=== PATIENT | female | born 1960 | race Caucasian/White ===

== ENCOUNTER 2016-10-06 23:06 | Inpatient (IN) | payer MEDICARE, MEDICAID ==
[2016-10-07] VITALS (21 sets, daily range): BP systolic 86–168; BP diastolic 54–107; PULSE 63–79; RESP 12–28; TEMP 98.7–101; O2SAT 97–100
[2016-10-07] MEDS ORDERED: PROPOFOL 1000 MG/100 ML INJ 100 ML ONE (00:38)
--- NOTE | 2016-10-07 01:25 | HHI.HP ---
[facility] Service Critical Care Medicine Primary Care Physician Kevin Ulloa M.D. Admission Diagnosis Diagnosis: (1) COPD (chronic obstructive pulmonary disease) Diagnosis: Secondary (2) Acute respiratory failure Diagnosis: Secondary (3) Tobacco abuse Diagnosis: Secondary (4) Chronic pain Diagnosis: Secondary (5) Hypothyroid Diagnosis: Secondary (6) Esophageal foreign body Diagnosis: Principal (7) Accidental esophageal perforation during procedure Diagnosis: Principal (8) Esophagitis Diagnosis: Secondary (9) Depression Diagnosis: Secondary (10) GERD (gastroesophageal reflux disease) Diagnosis: Secondary (11) Hyperlipidemia Diagnosis: Secondary (12) HTN (hypertension) Diagnosis: Secondary Travel History International Travel<30 Days: No Contact w/Intl Traveler <30 Da: No Traveled to Known Affected Are: No History of Present Illness 86-year-old female with past history of COPD, GERD, hypertension, hyperlipidemia, hypothyroidism, chronic pain with pain pump L flank transferred from [facility] due to concern for esophageal perforation. Patient originally presented to [facility] emergency Department on at around 8 PM complaining of difficulty swallowing after she had eaten some steak around [address] Nazario with gastroenterology took her to GI lab for endoscopy where she was noted to have significant esophagitis. There was a large foreign body with steak in the esophagus. He made multiple passes with net and tripod and was able to remove 6-7 large pieces of steak but states there was still a large amount of residual foreign body when procedure concluded after unintentional esophageal perforation distal third of esophagus. Dr. Nazario discussed with Dr. Hernandez with [facility] surgery who agreed to see patient in consultation with front end architect admission. Patient is awake alert, anxious on the ventilator upon arrival with propofol at 80 g per KG per minute. Normotensive. Review of Systems ROS Limitations: Clinical Condition, Intubated Past Family Social History Allergies: Coded Allergies: No Known Allergies (Unverified , 10/07/16) Past Medical History Chronic pain Hypothyroidism COPD Hypertension Hyperlipidemia GERD Depression Past Surgical History Bilateral tubal ligation Correction of deviated septum History of tubal Pilonidal cyst Cervical fusion Breast lumpectomy Laminectomy Reported Medications Unable to obtain from patient due to clinical condition. Medication reconciliation from transferring hospital indicates: Albuterol 2 puffs inhaled every 6 hours when necessary wheezing Norvasc 5 mg by mouth daily Percocet 7.5/325 one tab by mouth twice a day as needed Amitriptyline 75 mg by mouth daily at bedtime Atorvastatin 40 mg by mouth daily at bedtime Fentanyl patch 25 every 72 hours [place]-codon 10 mg when necessary pain Levothyroxin 175 g by mouth daily Multivitamin 1 tab by mouth daily Prednisone 40 mg by mouth daily Family History Unable to obtain from patient due to clinical condition Social History Unable to obtain from patient due to clinical condition Prior records indicate one pack of cigarettes daily. Physical Exam Vital Signs Vital Signs Date Time Temp Pulse Resp B/P Pulse Ox O2 Delivery O2 Flow Rate FiO2 10/07/16 00:30 63 Physical Exam GENERAL: Well-nourished, well-developed female who is orotracheally intubated, anxious appearing. SKIN: Warm and dry. HEAD: Atraumatic. Normocephalic. EYES: Pupils equal and round, 2 mm reactive. No scleral icterus. No injection or drainage. ENT: No nasal bleeding or discharge. Mucous membranes pink and moist. NECK: Trachea midline. No JVD. CARDIOVASCULAR: Regular rate and rhythm. No murmurs rubs or gallops. RESPIRATORY: No accessory muscle use. Clear to auscultation. Breath sounds equal bilaterally. No subcutaneous emphysema GASTROINTESTINAL: Abdomen soft, non-tender, nondistended. Bowel sounds present. Pain pump palpable left flank. MUSCULOSKELETAL: Extremities without clubbing, cyanosis, or edema. NEUROLOGICAL: Awake and alert, nodding to questions while on ventilator.. No obvious cranial nerve deficits. Motor grossly within normal limits., Moving all extremities spontaneously and to command. Assessment and Plan Problem List: (1) COPD (chronic obstructive pulmonary disease) ICD Code: J44.9 Status: Chronic (2) Acute respiratory failure ICD Code: J96.00 Status: Acute (3) Tobacco abuse ICD Code: Z72.0 Status: Chronic (4) Chronic pain ICD Code: G89.29 Status: Chronic (5) Hypothyroid ICD Code: E03.9 Status: Chronic (6) Esophageal foreign body ICD Code: T18.108A Status: Acute (7) Accidental esophageal perforation during procedure ICD Code: K91.72 Status: Acute (8) Esophagitis ICD Code: K20.9 Status: Chronic (9) Depression ICD Code: F32.9 Status: Chronic (10) GERD (gastroesophageal reflux disease) ICD Code: K21.9 Status: Chronic (11) Hyperlipidemia ICD Code: E78.5 Status: Chronic (12) HTN (hypertension) ICD Code: I10 Status: Chronic Assessment and Plan NEURO: Chronic pain Pain pump in place Depression Propofol for sedation. Fentanyl drip sedation Target RASS -2 Hold amitriptyline 75 mg by mouth daily. RESP: Acute respiratory failure COPD Tobacco abuse ACV tidal volume 450/rate 16/P5/FiO2 35%. Chest x-raysatisfactory endotracheal tube position, bibasilar opacities, no subcutaneous edema. DuoNeb every 6 hours. Albuterol every 2 hours as needed. Appears patient was on prednisone 40 mg daily as outpatient. CV: Hypertension Hyperlipidemia Hold home Norvasc 5 mg by mouth daily. Hold atorvastatin 40 mg by mouth daily at bedtime GI: GERD Esophagitis Esophageal foreign body, meat impaction Concern for esophageal perforation, distal 1/3 of esophagus Endoscopy performed at [facility]. Dr. Nazario states unable to fully remove foreign body despite multiple attempts and concern that there was an unintentional perforation of the esophagus. Transferred to [facility] for CV surgery evaluation. Dr. Mayte Hernandez to see. May need gastroenterology consult as well but will confer with Dr. Cameron. Obtain CT chest noncontrast . FEN/RENAL: Schneider in place. Monitor intake and output. Monitor electrolytes and replace as indicated ID: Concern for esophageal perforation. Empiric therapy with Zosyn 3.375 g IV every 8 hours; Diflucan 400 mg IV daily ( history of chronic PPI/steroid use). Blood cultures were obtained HEME: Obtain CBC ENDO: Hypothyroidism Home Synthroid dose is 175 g daily. Check TSH and initiate IV synthroid. PROPH: SCDs for DVT prophylaxis. Protonix 40 mg IV daily for stress ulcer prophylaxis and history of GERD. ACCESS: Peripheral IV providing adequate access at this time. Updated Dr. Mayte Hernandez. Critical care time 50 minutes exclusive of separately billable procedures. Problem Qualifiers (1) Esophageal foreign body: Qualified Code: T18.108D - Esophageal foreign body, subsequent encounter Diandra Gastelum MD October 07, 2016 01:25
[2016-10-07] MEDS ORDERED: MIDAZOLAM HCL 5 MG/ML VIAL (1 ML) ONE (01:37)
[2016-10-07] MEDS: SODIUM CHLOR 0.9% 1000 ML INJ 1,000 ML IV SCH ×4 (01:37→22:01)
[2016-10-07] MEDS ORDERED: MISCELLANEOUS NURSING INFORMATION XX SCH (01:45)
[2016-10-07] MEDS ORDERED: CHLORHEXIDINE GLUCONATE 2 % 1 PACK (2 CLOTHS) TOP PRN (01:45)
[2016-10-07] MEDS ORDERED: ONDANSETRON HCL 4 MG/2 ML VIAL IV PRN (01:45)
[2016-10-07] MEDS ORDERED: SODIUM CHLORIDE 0.9% FLUSH 10 ML FLUSH PRN (01:45)
[2016-10-07] MEDS ORDERED: RESP: ALBUTEROL 2.5 MG/3 ML NEB (PRN) INH (01:45)
[2016-10-07] MEDS ORDERED: BISACODYL 10 MG SUPP RECTAL PRN (01:45)
[2016-10-07] MEDS: fentaNYL DRIP 250 ML IV SCH ×3 (01:51→18:20)
--- NOTE | 2016-10-07 02:11 | RADRPT ---
EXAM DATE/TIME: 10/07/2016 01:41 [facility] COMPARISON: No previous studies available for comparison. INDICATIONS : Respiratory failure. MEDICAL HISTORY : None. SURGICAL HISTORY : None. ENCOUNTER: Subsequent ACUITY: 2 days PAIN SCORE: Non-responsive. LOCATION: Bilateral chest FINDINGS: Endotracheal tube is present with tip 4 cm above the debi. There is slight basilar parenchymal opac ity bilaterally. No evidence of effusion. Accounting for rotation, the cardiac contours are grossly s atisfactory. CONCLUSION: Mild basilar parenchymal opacities Sabas Enciso MD on October 07, 2016 at 2:09 Board Certified Radiologist. This report was verified electronically.
[2016-10-07] MEDS: FLUCONAZOLE 400 MG PREMIX BAG 200 ML IV SCH (02:24)
[2016-10-07] MEDS: PROPOFOL 1000 MG/100 ML INJ 100 ML IV SCH ×6 (02:33→22:03)
[2016-10-07 03:06] LABS: BLOOD GAS BASE EXCESS 0.8 mmol/L (-2-2); BLOOD GAS CARBOXYHEMOGLOBIN 1.8 % (0-4); BLOOD GAS HCO3 24 mmol/L (22-26); BLOOD GAS METHEMOGLOBIN 0.9 % (0-2); BLOOD GAS O2 HGB SATURATION 96 % (90-100); BLOOD GAS OXYGEN CONTENT 16.1 Vol % (12.0-20.0); BLOOD GAS PCO2 32 mmHg (38-42); BLOOD GAS PO2 110 mmHg (61-120); BLOOD GAS TOTAL HGB 11.8 G/DL (12.0-16.0); TEMP CORR TO 98.6
[2016-10-07 03:07] LABS: CRITICAL VALUE NO; DRAW SITE RT RADIAL; FIO2 40 %; NUMBER OF ARTERIAL PUNCTURES 1; OXYGEN DEVICE VENTILATOR; STAT NO; ULNAR PULSE PRESENT; VENT SETTINGS A/C16/450/+5PEEP
--- NOTE | 2016-10-07 03:27 | RADRPT ---
EXAM DATE/TIME: 10/07/2016 03:08 [facility] COMPARISON: No previous studies available for comparison. INDICATIONS : Status post EGD; possible esophageal perforation. RADIATION DOSE: 5.14 CTDIvol (mGy) MEDICAL HISTORY : None SURGICAL HISTORY : foreign body lodged in esophagus - retrieval ENCOUNTER: [facility] ACUITY: 1 day PAIN SCALE: Non-responsive LOCATION: chest TECHNIQUE: Volumetric scanning of the chest was performed. Using automated exposure control and adjustment of t he mA and/or kV according to patient size, radiation dose was kept as low as reasonably achievable to obtain optimal diagnostic quality images. FINDINGS: LUNGS: There is perihilar infiltrates, right worse than left and basilar consolidative changes bilaterally. PLEURAE: Minimal bilateral effusion. MEDIASTINUM: There is a mixed density prominence in the distal esophagus which may be retained impacted food bolus . There is air external to the esophagus in the lower mediastinum and significant extraluminal gas pr esent at the GE junction and in the visualized upper abdomen at multiple sites. AXILLAE: Within normal limits. No lymphadenopathy. MUSCULOSKELETAL: Within normal limits for patient age. MISCELLANEOUS: Pneumoperitoneum in the visualized upper abdomen is incompletely seen CONCLUSION: Significant extraluminal gas in the lower mediastinum and visualized upper abdomen. Perihilar and bibasilar parenchymal infiltrates. Sabas Enciso MD on October 07, 2016 at 3:21 Board Certified Radiologist. This report was verified electronically.
[2016-10-07] MEDS: RESP: ALBUTEROL 2.5 MG/IPRATROPIUM 0.5 MG NEB (SCH) INH ×4 (03:49→19:36)
[2016-10-07] MEDS: CHLORHEXIDINE GLUCONATE 2 % 1 PACK (2 CLOTHS) TOP SCH (04:00)
[2016-10-07] MEDS: PIPERACIL-TAZO 3.375 GM PREMIX 50 ML IV SCH ×3 (04:00→18:20)
[2016-10-07] MEDS ORDERED: MIDAZOLAM HCL 5 MG/ML VIAL (1 ML) IV SCH (04:15)
[2016-10-07] MEDS: MIDAZOLAM HCL 2 MG/2 ML VIAL IV PRN ×2 (05:16→08:55)
[2016-10-07] MEDS: CHLORHEXIDINE 0.12% (ORAL KIT) 15 ML CUP MT SCH ×2 (08:00→20:00)
[2016-10-07] MEDS: PANTOPRAZOLE SODIUM 40 MG VIAL IV SCH (08:50)
[2016-10-07] MEDS: SODIUM CHLORIDE 0.9% FLUSH 10 ML FLUSH SCH ×2 (08:55→22:01)
--- NOTE | 2016-10-07 11:18 | PD.CONS ---
History of Present Illness Service CT Surgery Consult Requested By Dr. Gastelum Reason for Consult Iatrogenic esophageal injury s/p upper endoscopy for meat impaction Primary Care Physician Kevin Ulloa M.D. Diagnoses: (1) Esophageal foreign body (2) Accidental esophageal perforation during procedure (3) Esophagitis History of Present Illness 56 y/o female transferred from [facility] emergently due to suspected esophageal injury during an endoscopy procedure. The patient presented to the ED there with c/o dysphagia after ingesting steak. She denies any h/o esophageal disease, dysphagia, or odynophagia. She does have significant h/o reflux/heartburn and tobacco abuse. Dr. Nazario at [facility] requested transfer when he was concerned about esophageal injury in their operating room. Review of Systems ROS Limitations: Clinical Condition, Intubated Patient is intubated/sedated Past Family Social History Allergies: Coded Allergies: No Known Allergies (Unverified , 10/07/16) Past Medical History Past Medical History Chronic pain Hypothyroidism COPD Hypertension Hyperlipidemia GERD Depression Past Surgical History Bilateral tubal ligation Correction of deviated septum History of tubal Pilonidal cyst Cervical fusion Breast lumpectomy Laminectomy Reported Medications Unable to obtain from patient due to clinical condition. Medication reconciliation from transferring hospital indicates: Albuterol 2 puffs inhaled every 6 hours when necessary wheezing Norvasc 5 mg by mouth daily Percocet 7.5/325 one tab by mouth twice a day as needed Amitriptyline 75 mg by mouth daily at bedtime Atorvastatin 40 mg by mouth daily at bedtime Fentanyl patch 25 every 72 hours [place]-codon 10 mg when necessary pain Levothyroxin 175 g by mouth daily Multivitamin 1 tab by mouth daily Prednisone 40 mg by mouth daily Family History Unable to obtain from patient due to clinical condition Social History Unable to obtain from patient due to clinical condition Prior records indicate one pack of cigarettes daily. Current Medications Medications (Trade) Dose Ordered Sig/Magi Route Start Time Stop Time Status Last Admin (NS 1000 ml Inj) 1,000 ml @ 125 mls/hr Q8H IV 10/07/16 01:37 10/07/16 08:55 (NS Flush) 2 ml UNSCH PRN .XX 10/07/16 01:45 (NS Flush) 2 ml BID .XX 10/07/16 09:00 10/07/16 08:55 (Protonix Inj) 40 mg DAILY IV 10/07/16 09:00 10/07/16 08:50 (Versed Inj) 2 mg Q15M PRN IV 10/07/16 01:45 10/07/16 08:55 (Zofran Inj) 4 mg Q6H PRN IV 10/07/16 01:45 Miscellaneous Information 1 Q361D XX 10/07/16 01:45 (Chlorhexidine 2% Cloth) 3 pack Taper DAILY@04 TOP 10/07/16 04:00 10/03/17 03:59 10/07/16 04:00 (Chlorhexidine 2% Cloth) 3 pack UNSCH PRN TOP 10/07/16 01:45 Bisacodyl 10 mg 10 mg DAILY PRN RECTAL 10/07/16 01:45 Propofol 100 ml @ 0 mls/hr TITRATE IV 10/07/16 01:45 10/07/16 08:50 Fentanyl Citrate 250 ml @ 0 mls/hr TITRATE IV 10/07/16 01:45 10/07/16 08:50 Piperacillin Sod/ Tazobactam Sod 50 ml @ 100 mls/hr Q8H IV 10/07/16 02:00 10/07/16 04:00 (Diflucan 400 Mg Premix Bag) 200 ml @ 100 mls/hr Q24H IV 10/07/16 02:00 10/07/16 02:24 (Peridex 0.12% Liq) 15 ml BID@08,20 MT 10/07/16 08:00 10/07/16 08:00 Physical Exam Vital Signs Vital Signs Date Time Temp Pulse Resp B/P Pulse Ox O2 Delivery O2 Flow Rate FiO2 10/07/16 08:06 99 40 10/07/16 07:00 100 Mechanical Ventilator 40 10/07/16 06:00 71 10/07/16 04:00 72 10/07/16 04:00 100.3 77 14 168/107 99 10/07/16 04:00 100.3 73 12 153/100 98 10/07/16 03:54 100 40 10/07/16 03:00 98 40 10/07/16 03:00 100 100 10/07/16 02:00 72 10/07/16 01:24 99 40 10/07/16 00:30 63 10/07/16 00:30 50 Physical Exam GENERAL: This is a well-nourished, well-developed patient, intubated and appearing older than her stated age. SKIN: No rashes, ecchymoses or lesions. Cool and dry. HEAD: Atraumatic. Normocephalic. No temporal or scalp tenderness. EYES: Pupils equal round and reactive. Extraocular motions intact. No scleral icterus. No injection or drainage. ENT: Nose without bleeding, purulent drainage or septal hematoma. Throat without erythema, tonsillar hypertrophy or exudate. Uvula midline. Airway patent. NECK: Trachea midline. No JVD or lymphadenopathy. Supple, nontender, no meningeal signs. CARDIOVASCULAR: Regular rate and rhythm without murmurs, gallops, or rubs. RESPIRATORY: Clear to auscultation. Breath sounds equal bilaterally. No wheezes , rales, or rhonchi. GASTROINTESTINAL: Abdomen soft, mildly distended, tympanitic with mild tenderness. +BS MUSCULOSKELETAL: Extremities without clubbing, cyanosis, or edema. No joint tenderness, effusion, or edema noted. No calf tenderness. Negative Homans sign bilaterally. NEUROLOGICAL: Awake and alert. Cranial nerves II through XII intact. Motor and sensory grossly within normal limits. Five out of 5 muscle strength in all muscle groups. Normal speech. Laboratory Laboratory Tests Test 10/07/16 10/07/16 00:45 02:52 Nasal Screen MRSA (PCR) MRSA NOT DETECTED Blood Gas Puncture Site RT RADIAL Blood Gas Patient Temperature 98.6 Blood Gas HCO3 24 Blood Gas Base Excess 0.8 Blood Gas Oxygen Saturation 96 Arterial Blood pH 7.49 Arterial Blood Partial 32 Pressure CO2 Arterial Blood Partial 110 Pressure O2 Arterial Blood Oxygen Content 16.1 Arterial Blood 1.8 Carboxyhemoglobin Arterial Blood Methemoglobin 0.9 Blood Gas Hemoglobin 11.8 Oxygen Delivery Device VENTILATOR Blood Gas Ventilator Setting A/C16/450/+5PEEP Blood Gas Inspired Oxygen 40 Date/Time Procedure Status Source Growth 10/07/16 02:10 Aerobic Blood Culture Received Blood Peripheral Pending 10/07/16 02:10 Anaerobic Blood Culture Received Blood Peripheral Pending Imaging Last Impressions Chest X-Ray 10/07/16 0000 Signed Impressions: Service Date/Time: Friday, October 07, 2016 01:41 - CONCLUSION: Mild basilar parenchymal opacities Sabas Enciso MD Chest CT 10/07/16 0000 Signed Impressions: Service Date/Time: Friday, October 07, 2016 03:08 - CONCLUSION: Significant extraluminal gas in the lower mediastinum and visualized upper abdomen. Perihilar and bibasilar parenchymal infiltrates. Sabas Enciso MD Course Patient is intubated and hemodynamically stable. Assessment and Plan Problem List: (1) Esophageal foreign body Status: Acute (2) Accidental esophageal perforation during procedure Status: Acute (3) GERD (gastroesophageal reflux disease) Status: Chronic Plan: Recommend proton pump inhibitors. (4) Esophagitis Status: Chronic Assessment and Plan 56 y/o female with complicated esophageal injury and meat impaction. I reviewed her chest CT and she does not appear to have a true free perforation into the chest or abdomen. She most likely has a mucosal injury from the procedure and some retained meat bolus. The gas in the soft tissues is often seen with insufflation used during EGD, however, perforation and soiling cannot be excluded at this time. She does not appear septic or toxic at this time and is being treated with broad-spectrum antibiotics and fluconazole. Plan: Recommend serial CBC and frequent checks for signs of sepsis. Continue antibiotics/fluconazole Consult GI medicine Consider thin barium swallow or via NG tube in the proximal esophagus to better examine the area for perforation Consider General Surgery consult as the area of concern appears to be more abdominal than thoracic. Will follow. Problem Qualifiers (1) Esophageal foreign body: Qualified Code: T18.108D - Esophageal foreign body, subsequent encounter Phuong Hernandez MD October 07, 2016 11:18
[2016-10-07] MEDS ORDERED: LORazepam 2 MG/ML VIAL IV PUSH PRN (11:30)
--- NOTE | 2016-10-07 11:43 | PD.PROCEDR ---
Procedure Note Procedure DX: Esophageal Perforation OP: Insertion Left Subclavian Central Venous Line ([id number]) Procedure: Left chest prepped and draped. Left subclavian vein cannulated and wire easily advanced. Catheter passed over wire to 18 cm. Lumens aspirated and flushed. Dressing applied. CXR ordered, will review. Neo Currie MD October 07, 2016 11:43
[2016-10-07 13:21] LABS: AUTOMATED NEUTROPHIL # 9.7 TH/MM3 (1.8-7.7); BASOPHIL % 0.3 % (0.0-2.0); HEMATOCRIT 32.8 % (35.0-46.0); LYMPH % 4.7 % (9.0-44.0); LYMPHOCYTE # 0.5 TH/MM3 (1.0-4.8); MEAN CELL VOLUME 89.5 FL (80.0-100.0); MEAN CORPUSCULAR HEMOGLOBIN 30.5 PG (27.0-34.0); MONO % 3.9 % (0.0-8.0); NEUT % 91.1 % (16.0-70.0); PLATELET COUNT 256 TH/MM3 (150-450); RED BLOOD COUNT 3.66 MIL/MM3 (4.00-5.30); RED CELL DISTRIBUTION WIDTH 19.4 % (11.6-17.2); WHITE BLOOD COUNT 10.6 TH/MM3 (4.0-11.0)
[2016-10-07 13:22] LABS: HEMO FLAGS AUTO DIFF
--- NOTE | 2016-10-07 13:32 | RADRPT ---
EXAM DATE/TIME: 10/07/2016 12:22 [facility] COMPARISON: CT THORAX W/O CONTRAST, October 07, 2016, 3:08. CHEST SINGLE AP, October 07, 2016, 1:41. INDICATIONS : Central line placement. MEDICAL HISTORY : None. SURGICAL HISTORY : None. ENCOUNTER: Subsequent ACUITY: 1 day PAIN SCORE: Non-responsive. LOCATION: chest FINDINGS: Portable AP view of the chest demonstrates cardiac silhouette at the upper limits for normal. Left vernon bclavian central line has been placed with the distal tip in the SVC. No pneumothorax is visualized. ETT remains present. Lungs are underinflated and there are bibasilar opacities. Breast implants are p resent. CONCLUSION: 1. Left subclavian central line distal tip is in the SVC. No pneumothorax is visualized. 2. Underinflation with persistent bibasilar air space opacity. Sabas Yip MD on October 07, 2016 at 13:29 Board Certified Radiologist. This report was verified electronically.
[2016-10-07 13:34] LABS: BICARBONATE 27.3 MEQ/L (21.0-32.0); POTASSIUM 3.5 MEQ/L (3.5-5.1)
[2016-10-07 13:51] LABS: BANDS 21 % (0-6); NEUTROPHIL # MANUAL DIFF 9.8 TH/MM3 (1.8-7.7); POLYS (SEG NEUTROPHILS) 71 % (16-70); WBC DIFF SAMPLE 100
[2016-10-07 13:52] LABS: PLATELET ESTIMATE SMEAR NORMAL (NORMAL); PLATELET MORPHOLOGY NORMAL (NORMAL); SCAN/DIFF FINAL DIFF MANUAL
--- NOTE | 2016-10-07 16:56 | MB ---
cc: KRANTHI LOPEZ M.D. DATE OF CONSULTATION: 10/07/2016. REASON FOR CONSULTATION: Questionable esophageal perforation. CONSULTING PHYSICIAN: Dr. Currie. HISTORY OF PRESENT ILLNESS: This is a 56-year-old female who was at [facility] and underwent an EGD for esophageal obstruction with steak. This EGD was done by Dr. Nazario. Apparently he was concerned about a possible perforation during manipulation; I do not have the formal dictation. At any rate, she was transferred over early this morning and the cardiothoracic surgeon evaluated her. She had a CT of her chest which shows some air bubbles around the esophagus and distal esophagus. She was kept on the ventilator after her EGD. Dr. Hernandez felt that she since she was stable and they were watching her, Dr. Currie saw her this morning and wanted general surgery input for evaluation as well. PAST MEDICAL HISTORY: Her history is obtained from the medical record as she is under sedation on the ventilator. I am able to review some paperwork from other hospital, she mostly has nursing notes. On review of Dr. Gastelum notes, she had apparently has: 1. Chronic pain. 2. Hypothyroidism. 3. Depression. 4. COPD. 5. Impaction of a steak in her distal esophagus. Dr. Nazario had a conversation with Dr. Hernandez, the cardiovascular surgeon, early this morning apparently. MEDICATIONS: Reviewed. PHYSICAL EXAMINATION:: GENERAL: On physical exam, she is on the ventilator sedated. She has numerous earrings in her head, eyebrows, umbilicus. NECK: The neck is supple. She has an endotracheal tube in. CHEST: Fairly clear. ABDOMEN: Slightly obese, soft without rigidity. EXTREMITIES: She is sedated, so was not moving her extremities. GENITOURINARY: She has a Schneider catheter which is draining urine. In other reports, apparently she was awake and alert. Reviewing the CT scan, it appears that she has a food bolus in the distal one-third of the esophagus just behind the tip of the heart. On reviewing Dr. Nazario's handwritten note, it looks like he pulled out part of the impaction, but not all of it. LABORATORY DATA: She has a white count of 11, hemoglobin 11 and hematocrit 32. Chemistries all pending. ASSESSMENT: 56-year-old female status post EGD with partial removal of a steak impaction at an outside institution left on the ventilator for possible esophageal perforation. PLAN: At this time, I would continue antibiotics. I talked to Dr. Currie about placing a nasal esophageal tube just to keep the esophagus decompressed. This may just be a microperforation. I think at this time if any surgical intervention is needed the best approach by the cardiothoracic surgeon where this microperforation or perforation may have resulted in the chest, the chest needs to be drained if that is the case as well. I will be on standby if needed; however, I do not think my surgical privileges at the hospital allow me to perform thoracotomy at this time. MD OLIMPIA Carcamo/TIA /1:37 PM /4:46 PM TORO
--- NOTE | 2016-10-07 17:15 | PD.CONS ---
HPI History of Present Illness This is a 56 year old [lady. who was sent from [facility] after having an EGD/ foreign body removal for a piece of steak and it was thought that there might be esophageal perforation after the procedure. She presented to the ER yesterday evening with dysphagia after eating steak and had EGD with Dr Nazario, esophagitis noted. He was not able to removed all of the foreign body. She is intubated on a vent, history obtained from RN, EMR. CT 10-07-16 --> mixed density prominence in diatal esophagus which may be retained impacted food bolus , air external to esophagus in lower mediastinum and significant extraluminal gas present at GE junction and visualized upper abd at multiple sites. ( Linda Garrison) PFSH Past Medical History per EMR chronic pain hypothyroid HTN hyperlipidemia GERD depression Past Surgical History per EMR bilat tubal ligation repair dev septum cervical fusion br lumpectomy lami (Linda Garrison) Coded Allergies: No Known Allergies (Unverified , 10/07/16) Family History unable to obtain Social History per EMR 1 ppd (Linda Garrison) Review of Systems ROS unable to obtain (Linda Garrison) GI Exam Vitals I&O Vital Signs Date Time Temp Pulse Resp B/P Pulse Ox O2 Delivery O2 Flow Rate FiO2 10/07/16 15:14 97 40 10/07/16 15:00 79 10/07/16 14:00 71 10/07/16 12:00 50 10/07/16 12:00 98.9 74 12 116/68 100 10/07/16 12:00 74 10/07/16 11:42 98 40 10/07/16 10:00 70 10/07/16 08:06 99 40 10/07/16 08:00 98.7 77 12 131/91 100 10/07/16 08:00 50 10/07/16 08:00 75 10/07/16 07:00 100 Mechanical Ventilator 40 10/07/16 07:00 75 10/07/16 06:00 71 10/07/16 04:00 72 10/07/16 04:00 100.3 77 14 168/107 99 10/07/16 04:00 100.3 73 12 153/100 98 10/07/16 03:54 100 40 10/07/16 03:00 98 40 10/07/16 03:00 100 100 10/07/16 02:00 72 10/07/16 01:24 99 40 10/07/16 00:30 63 10/07/16 00:30 50 I/O 10/06/16 10/06/16 10/06/16 10/07/16 10/07/16 10/07/16 07:00 15:00 23:00 07:00 15:00 23:00 Intake Total 586 ml 1242 ml Output Total 1750 ml 750 ml Balance -1164 ml 492 ml Intake IV Total 586 ml 1242 ml Output Urine Total 1750 ml 750 ml # Bowel Movements 0 Imaging Last Impressions Chest X-Ray 10/07/16 0000 Signed Impressions: Service Date/Time: Friday, October 07, 2016 12:22 - CONCLUSION: 1. Left subclavian central line distal tip is in the SVC. No pneumothorax is visualized. 2. Underinflation with persistent bibasilar air space opacity. Sabas Yip MD Chest CT 10/07/16 0000 Signed Impressions: Service Date/Time: Friday, October 07, 2016 03:08 - CONCLUSION: Significant extraluminal gas in the lower mediastinum and visualized upper abdomen. Perihilar and bibasilar parenchymal infiltrates. Sabas Enciso MD Laboratory Test 10/07/16 10/07/16 10/07/16 10/07/16 00:45 02:52 13:01 13:07 Nasal Screen MRSA (PCR) MRSA NOT DETECTED Blood Gas Puncture Site RT RADIAL Blood Gas Patient Temperature 98.6 Blood Gas HCO3 24 mmol/L Blood Gas Base Excess 0.8 mmol/L Blood Gas Oxygen Saturation 96 % Arterial Blood pH 7.49 Arterial Blood Partial 32 mmHg Pressure CO2 Arterial Blood Partial 110 mmHg Pressure O2 Arterial Blood Oxygen Content 16.1 Vol % Arterial Blood 1.8 % Carboxyhemoglobin Arterial Blood Methemoglobin 0.9 % Blood Gas Hemoglobin 11.8 G/DL Oxygen Delivery Device VENTILATOR Blood Gas Ventilator Setting A/C16/450/+5PEEP Blood Gas Inspired Oxygen 40 % Sodium Level 141 MEQ/L Potassium Level 3.5 MEQ/L Chloride Level 104 MEQ/L Carbon Dioxide Level 27.3 MEQ/L Anion Gap 10 MEQ/L Blood Urea Nitrogen 8 MG/DL Creatinine 0.72 MG/DL Estimat Glomerular Filtration 84 ML/MIN Rate Random Glucose 87 MG/DL Calcium Level 7.6 MG/DL Thyroid Stimulating Hormone 13.600 uIU/ML 3rd Gen White Blood Count 10.6 TH/MM3 Red Blood Count 3.66 MIL/MM3 Hemoglobin 11.2 GM/DL Hematocrit 32.8 % Mean Corpuscular Volume 89.5 FL Mean Corpuscular Hemoglobin 30.5 PG Mean Corpuscular Hemoglobin 34.0 % Concent Red Cell Distribution Width 19.4 % Platelet Count 256 TH/MM3 Mean Platelet Volume 7.4 FL Neutrophils (%) (Auto) 91.1 % Lymphocytes (%) (Auto) 4.7 % Monocytes (%) (Auto) 3.9 % Eosinophils (%) (Auto) 0.0 % Basophils (%) (Auto) 0.3 % Neutrophils # (Auto) 9.7 TH/MM3 Lymphocytes # (Auto) 0.5 TH/MM3 Monocytes # (Auto) 0.4 TH/MM3 Eosinophils # (Auto) 0.0 TH/MM3 Basophils # (Auto) 0.0 TH/MM3 CBC Comment AUTO DIFF Differential Total Cells 100 Counted Neutrophils % (Manual) 71 % Band Neutrophils % 21 % Lymphocytes % 4 % Monocytes % 4 % Neutrophils # (Manual) 9.8 TH/MM3 Differential Comment FINAL DIFF MANUAL Platelet Estimate NORMAL Platelet Morphology Comment NORMAL Date/Time Procedure Status Source Growth 10/07/16 13:41 Gram Stain Received Sputum Endotracheal Pending 10/07/16 13:41 Sputum Culture Received Sputum Endotracheal Pending 10/07/16 02:10 Aerobic Blood Culture Received Blood Peripheral Pending 10/07/16 02:10 Anaerobic Blood Culture Received Blood Peripheral Pending Physical Examination HEENT: intubated, normocephalic; atraumatic; no jaundice. CHEST: CTA CARDIAC: RRR ABDOMEN: Soft, obese, no hepatosplenomegaly; bowel sounds are present in all four quadrants. EXTREMITIES: No clubbing, cyanosis, or edema. SKIN: Normal; no rash; no jaundice. ADJUNCT PROFESSOR OF VOICE: sedated on vent. (Linda Garrison) Assessment and Plan Plan ASSESSMENT - poss esophageal perforation - pt sent from [facility] after EGD for foreign body removal and suspected esophageal perforation. Pt intubated. CT 10-07-16 --> mixed density prominence in distal esophagus which may be retained impacted food bolus, air external to esophagus in lower mediastinum and significant extraluminal gas present at GE junction and visualized upper abd at multiple sites. - poss foreign body esophagus - per EMR not all of steak removed from pts esophagus. PLAN - supportive care - further evaluation after extubation and gastrografin study This pt seen by myself and Dr Granados and this note is written on his behalf ( Linda Garrison) Physician Comments Seen and examined, plan as above. Will follow up with you. (Neelima Granados MD) Linda Garrison October 07, 2016 17:14 Neelima Granados MD October 07, 2016 23:19
[2016-10-08] VITALS (15 sets, daily range): BP systolic 92–110; BP diastolic 53–63; PULSE 63–88; RESP 12–28; TEMP 98.1–101; O2SAT 94–100
[2016-10-08] MEDS: FLUCONAZOLE 400 MG PREMIX BAG 200 ML IV SCH (01:15)
[2016-10-08] MEDS: PIPERACIL-TAZO 3.375 GM PREMIX 50 ML IV SCH ×3 (01:16→18:27)
[2016-10-08] MEDS: fentaNYL DRIP 250 ML IV SCH ×3 (01:16→23:14)
[2016-10-08] MEDS: PROPOFOL 1000 MG/100 ML INJ 100 ML IV SCH ×7 (01:17→23:38)
[2016-10-08] MEDS: RESP: ALBUTEROL 2.5 MG/IPRATROPIUM 0.5 MG NEB (SCH) INH ×4 (03:19→21:45)
[2016-10-08] MEDS: CHLORHEXIDINE GLUCONATE 2 % 1 PACK (2 CLOTHS) TOP SCH (04:00)
--- NOTE | 2016-10-08 05:14 | RADRPT ---
EXAM DATE/TIME: 10/08/2016 04:29 [facility] COMPARISON: CHEST SINGLE AP, October 07, 2016, 12:22. INDICATIONS : Short of breath. MEDICAL HISTORY : None. SURGICAL HISTORY : None. ENCOUNTER: Subsequent ACUITY: 2 days PAIN SCORE: 0/10 LOCATION: Bilateral chest FINDINGS: Endotracheal tube and left subclavian central line are stable in position. Slight basilar parenchymal opacities persist. Accounting for rotation, cardiac contours are grossly stable.CONCLUSION: Stab le chest appearance Sabas Enciso MD on October 08, 2016 at 5:11 Board Certified Radiologist. This report was verified electronically.
[2016-10-08 05:54] LABS: BASOPHIL % 0.3 % (0.0-2.0); EOSINOPHIL % 0.4 % (0.0-4.0); HEMATOCRIT 28.8 % (35.0-46.0); HEMO FLAGS DIFF FINAL; LYMPH % 6.9 % (9.0-44.0); LYMPHOCYTE # 0.6 TH/MM3 (1.0-4.8); MEAN CELL VOLUME 90.3 FL (80.0-100.0); MEAN CORPUSCULAR HEMOGLOBIN 30.4 PG (27.0-34.0); MEAN CORPUSCULAR HGB CONC 33.7 % (32.0-36.0); MONO % 2.8 % (0.0-8.0); NEUT % 89.6 % (16.0-70.0); PLATELET COUNT 215 TH/MM3 (150-450); RED BLOOD COUNT 3.19 MIL/MM3 (4.00-5.30); WHITE BLOOD COUNT 8.9 TH/MM3 (4.0-11.0)
[2016-10-08 06:07] LABS: BICARBONATE 28.3 MEQ/L (21.0-32.0); POTASSIUM 3.3 MEQ/L (3.5-5.1); THYROXINE (T4) 5.2 MCG/DL (4.8-13.9)
[2016-10-08 06:19] LABS: CALCIUM-PROTEIN CORRECTED 7.9 MG/DL (8.5-10.1)
--- NOTE | 2016-10-08 07:40 | HHI.CCPN ---
Subjective Remarks/Hospital Course 86-year-old female with past history of COPD, GERD, hypertension, hyperlipidemia, hypothyroidism, chronic pain with pain pump L flank transferred from [facility] due to concern for esophageal perforation. Patient originally presented to [facility] emergency Department on at around 8 PM complaining of difficulty swallowing after she had eaten some steak around [address] Nazario with gastroenterology took her to GI lab for endoscopy where she was noted to have significant esophagitis. There was a large foreign body with steak in the esophagus. He made multiple passes with net and tripod and was able to remove 6-7 large pieces of steak but states there was still a large amount of residual foreign body when procedure concluded after unintentional esophageal perforation distal third of esophagus. Dr. Nazario discussed with Dr. Hernandez with [facility] who agreed to see patient in consultation with diving board assembler admission. Patient is awake alert, anxious on the ventilator upon arrival with propofol at 80 g per KG per minute. Normotensive. 10/08: Appreciate input from consultants. We are presently dealing with full blown ETOH withdrawal as well. Objective Vital Signs Date Time Temp Pulse Resp B/P Pulse Ox O2 Delivery O2 Flow Rate FiO2 10/08/16 06:00 71 10/08/16 04:00 40 10/08/16 04:00 98.9 20 110/53 97 10/07/16 20:00 Mechanical Ventilator Intake and Output 10/07/16 10/07/16 10/08/16 08:00 16:00 00:00 Intake Total 586 ml 1242 ml 1514 ml Output Total 1750 ml 750 ml 450 ml Balance -1164 ml 492 ml 1064 ml Result Diagram: 10/08/16 0512 10/08/16 0512 Objective Remarks GENERAL: female, anxious appearing. SKIN: Warm and dry. HEAD: Atraumatic. Normocephalic. EYES: Pupils equal and round, 3 mm reactive. No scleral icterus. ENT: No nasal bleeding or discharge. NECK: Trachea midline. CARDIOVASCULAR: Regular rate and rhythm. No murmurs rubs or gallops. RESPIRATORY: No accessory muscle use. Clear to auscultation. Breath sounds equal bilaterally. No subcutaneous emphysema GASTROINTESTINAL: Abdomen soft, non-tender, nondistended. Bowel sounds present. Pain pump palpable left flank. MUSCULOSKELETAL: Extremities without clubbing, cyanosis, or edema. Well perfused. NEUROLOGICAL: Awake and alert, nodding to questions while on ventilator.. No obvious cranial nerve deficits. Motor grossly within normal limits., Moving all extremities spontaneously and to command. A/P Problem List: (1) COPD (chronic obstructive pulmonary disease) ICD Code: J44.9 Status: Chronic (2) Acute respiratory failure ICD Code: J96.00 Status: Acute (3) Tobacco abuse ICD Code: Z72.0 Status: Chronic (4) Chronic pain ICD Code: G89.29 Status: Chronic (5) Hypothyroid ICD Code: E03.9 Status: Chronic (6) Esophageal foreign body ICD Code: T18.108A Status: Acute (7) Accidental esophageal perforation during procedure ICD Code: K91.72 Status: Acute (8) Esophagitis ICD Code: K20.9 Status: Chronic (9) Depression ICD Code: F32.9 Status: Chronic (10) GERD (gastroesophageal reflux disease) ICD Code: K21.9 Status: Chronic (11) Hyperlipidemia ICD Code: E78.5 Status: Chronic (12) HTN (hypertension) ICD Code: I10 Status: Chronic Assessment and Plan NEURO: Chronic pain Pain pump in place Depression Propofol for sedation. Fentanyl drip sedation Target RASS -1 - 0 Hold amitriptyline 75 mg by mouth daily. RESP: Acute respiratory failure COPD Tobacco abuse PRVC tidal volume 450/rate 16/P5/FiO2 35%. Chest x-raysatisfactory endotracheal tube position, bibasilar opacities, no subcutaneous edema. DuoNeb every 6 hours. Albuterol every 2 hours as needed. Appears patient was on prednisone 40 mg daily as outpatient. CV: Hypertension Hyperlipidemia Hold home Norvasc 5 mg by mouth daily. Hold atorvastatin 40 mg by mouth daily at bedtime GI: GERD Esophagitis Esophageal foreign body, meat impaction Concern for esophageal perforation, distal 1/3 of esophagus Endoscopy performed at [facility]. Dr. Nazario states unable to fully remove foreign body despite multiple attempts and concern that there was an unintentional perforation of the esophagus. FEN/RENAL: Schneider in place. Monitor intake and output. Monitor electrolytes and replace as indicated ID: Concern for esophageal perforation. Empiric therapy with Zosyn 3.375 g IV every 8 hours; Diflucan 400 mg IV daily ( history of chronic PPI/steroid use). Blood cultures were obtained HEME: Obtain CBC ENDO: Hypothyroidism Home Synthroid dose is 175 g daily. Check TSH and initiate IV synthroid. PROPH: SCDs for DVT prophylaxis. Protonix 40 mg IV daily for stress ulcer prophylaxis and history of GERD. ACCESS: Peripheral IV providing adequate access at this time. Overall impression: No leukocytosis. Effusions persist. Multiple recommendations. She is critically ill with esophageal perforation (albeit likely micro) and ETOH withdrawal complicated the issue. Critical Care 39 mins Problem Qualifiers (1) Esophageal foreign body: Qualified Code: T18.108D - Esophageal foreign body, subsequent encounter Neo Currie MD October 08, 2016 07:40
[2016-10-08] MEDS: CHLORHEXIDINE 0.12% (ORAL KIT) 15 ML CUP MT SCH ×2 (08:00→19:50)
[2016-10-08] MEDS: PANTOPRAZOLE SODIUM 40 MG VIAL IV SCH (08:45)
[2016-10-08] MEDS: SODIUM CHLORIDE 0.9% FLUSH 10 ML FLUSH SCH ×2 (08:46→20:39)
[2016-10-08] MEDS: SODIUM CHLOR 0.9% 1000 ML INJ 1,000 ML IV SCH ×3 (08:46→23:14)
[2016-10-08] MEDS ORDERED: ICU - D/C ICU ELECTROLYTE ORDERS PRN (12:45)
[2016-10-08] MEDS ORDERED: ICU - SODIUM PHOSPHATE 30 MMOL/NS 250 ML IV PRN ×2 (12:45)
[2016-10-08] MEDS ORDERED: ICU - MAGNESIUM SULFATE 2 GM/NS 100 ML IV PRN ×2 (12:45)
[2016-10-08] MEDS ORDERED: ICU - MAGNESIUM OXIDE 400 MG TAB PO PRN (12:45)
[2016-10-08] MEDS ORDERED: ICU - POTASSIUM PHOSPHATE MONOBASIC 500 MG TAB PO PRN (12:45)
[2016-10-08] MEDS ORDERED: ICU - CALL ORDERING PHYSICIAN PRN (12:45)
[2016-10-08] MEDS ORDERED: ICU - MAGNESIUM SULFATE 4 GM/NS 100 ML IV PRN ×2 (12:45)
[2016-10-08] MEDS ORDERED: ICU - POTASSIUM CHLORIDE/AQUEOUS SOLN 20 MEQ/100 ML IVPB IV PRN (12:45)
[2016-10-08] MEDS ORDERED: POTASSIUM CHLORIDE 25 MEQ EFFERVESCENT TAB PO PRN (12:45)
--- NOTE | 2016-10-08 13:07 | RADRPT ---
EXAM DATE/TIME: 10/08/2016 12:23 [facility] COMPARISON: CHEST SINGLE AP, October 08, 2016, 4:29. INDICATIONS : Nasogastric tube placement. MEDICAL HISTORY : None. SURGICAL HISTORY : None. ENCOUNTER: Initial ACUITY: 2 days PAIN SCORE: Non-responsive. LOCATION: chest FINDINGS: There is an NG tube positioned in the upper thorax with the tip just low the level of the bifurcation . There is an endotracheal tube in place which appears to be in good position and unchanged compared to the prior study. There is no evidence of pneumothorax. There is a mild bibasilar infiltrates. CONCLUSION: 1. The NG tube appears to be in the upper to mid thoracic esophagus 2. Otherwise, no significant changes. Jenaro Leblanc MD on October 08, 2016 at 13:04 Board Certified Radiologist. This report was verified electronically.
--- NOTE | 2016-10-08 13:19 | HHI.GIFU ---
Subjective Remarks Same general condition, still intubated. Objective Vitals I&O Vital Signs Date Time Temp Pulse Resp B/P Pulse Ox O2 Delivery O2 Flow Rate FiO2 10/08/16 12:00 40 10/08/16 11:59 94 40 10/08/16 09:20 40 10/08/16 08:51 99 40 10/08/16 08:00 99.3 71 18 95/54 97 10/08/16 08:00 40 10/08/16 07:00 98 Mechanical Ventilator 40 10/08/16 06:00 71 10/08/16 04:00 74 10/08/16 04:00 40 10/08/16 04:00 98.9 74 20 110/53 97 10/08/16 03:19 99 40 10/08/16 02:00 88 10/08/16 00:09 100 40 10/08/16 00:00 40 10/08/16 00:00 101.0 78 28 95/55 98 10/08/16 00:00 78 10/07/16 22:00 74 10/07/16 20:00 78 10/07/16 20:00 98.8 78 18 86/54 98 10/07/16 20:00 40 10/07/16 20:00 94 Mechanical Ventilator 40 10/07/16 19:37 98 40 10/07/16 18:00 74 10/07/16 16:00 98.8 74 19 104/59 98 10/07/16 16:00 74 10/07/16 16:00 40 10/07/16 15:14 97 40 10/07/16 15:00 79 10/07/16 14:00 71 I/O 10/07/16 10/07/16 10/07/16 10/08/16 10/08/16 10/08/16 07:00 15:00 23:00 07:00 15:00 23:00 Intake Total 586 ml 1242 ml 1514 ml 1025 ml Output Total 1750 ml 750 ml 450 ml 600 ml Balance -1164 ml 492 ml 1064 ml 425 ml Intake IV Total 586 ml 1242 ml 1514 ml 1025 ml Output Urine Total 1750 ml 750 ml 450 ml 600 ml # Bowel Movements 0 0 0 Laboratory Laboratory Tests Test 10/08/16 05:12 White Blood Count 8.9 Red Blood Count 3.19 Hemoglobin 9.7 Hematocrit 28.8 Mean Corpuscular Volume 90.3 Mean Corpuscular Hemoglobin 30.4 Mean Corpuscular Hemoglobin 33.7 Concent Red Cell Distribution Width 19.0 Platelet Count 215 Mean Platelet Volume 7.8 Neutrophils (%) (Auto) 89.6 Lymphocytes (%) (Auto) 6.9 Monocytes (%) (Auto) 2.8 Eosinophils (%) (Auto) 0.4 Basophils (%) (Auto) 0.3 Neutrophils # (Auto) 8.0 Lymphocytes # (Auto) 0.6 Monocytes # (Auto) 0.2 Eosinophils # (Auto) 0.0 Basophils # (Auto) 0.0 CBC Comment DIFF FINAL Differential Comment Sodium Level 141 Potassium Level 3.3 Chloride Level 105 Carbon Dioxide Level 28.3 Anion Gap 8 Blood Urea Nitrogen 10 Creatinine 0.80 Estimat Glomerular Filtration 74 Rate Random Glucose 94 Calcium Level 7.2 Protein Corrected Calcium 7.9 Total Protein 5.7 Thyroxine (T4) 5.2 Date/Time Procedure Status Source Growth 10/07/16 13:41 Gram Stain - Final Resulted Sputum Endotracheal 10/07/16 13:41 Sputum Culture - Preliminary Resulted Sputum Endotracheal HEAVY GROWTH NORMAL RESPIRATORY KETURAH... 10/07/16 02:10 Aerobic Blood Culture - Preliminary Resulted Blood Peripheral NO GROWTH IN 1 DAY 10/07/16 02:10 Anaerobic Blood Culture - Preliminary Resulted Gram Positive Cocci Physical Exam HEENT:Intubated, NG tube in place CHEST: Chest is clear to auscultation and percussion. CARDIAC: Regular rate and rhythm with no murmur gallop or rubs. ABDOMEN: Soft, nondistended, nontender; no hepatosplenomegaly; bowel sounds are present in all four quadrants. EXTREMITIES: No clubbing, cyanosis, or edema. Assessment and Plan Plan ASSESSMENT - Esophageal perforation - pt sent from [facility] after EGD for foreign body removal and suspected esophageal perforation. Pt intubated. CT 10-07-16 --> mixed density prominence in distal esophagus which may be retained impacted food bolus, air external to esophagus in lower mediastinum and significant extraluminal gas present at GE junction and visualized upper abd at multiple sites. - Foreign body esophagus - per EMR not all of steak removed from pts esophagus. PLAN - Supportive care - Await gastrografin study - Will follow up with Neelima Juarez MD October 08, 2016 13:19
[2016-10-08] MEDS ORDERED: DIATRIZOATE MEGLUM/DIATRIZOATE SOD 120 ML BTL (for RAD DIAG) OG-TUBE ONE (15:48)
--- NOTE | 2016-10-08 15:56 | RADRPT ---
EXAM DATE/TIME: 10/08/2016 15:28 [facility] COMPARISON: No previous studies available for comparison. INDICATIONS : Distal esophageal obstruction. FLUORO TIME: 1.8 minutes IMAGE COUNT: 10 CONTRAST: 1. Gastrografin (Diatrizoate Meglumine and Diatrizoate Sodium) MEDICAL HISTORY : Hypertension. Chronic obstructive pulmonary disease. Smoker. SURGICAL HISTORY : None. ENCOUNTER: Initial ACUITY: 1 day PAIN SCORE: Non-responsive. LOCATION: Esophagus. FINDINGS: Patient has an NG tube in place positioned in the upper thoracic esophagus. An endotracheal tube is a lso in place. Gastrografin was placed through the NG tube filling the thoracic esophagus. There is a complete obstruction involving the distal esophagus just above the GE junction location. No extravasa tion of contrast is demonstrated. At the end of the procedure, the Gastrografin was drained from the esophagus as much as possible. CONCLUSION: Complete obstruction of the distal esophagus. Jenaro Leblanc MD on October 08, 2016 at 15:53 Board Certified Radiologist. This report was verified electronically.
[2016-10-09] VITALS (17 sets, daily range): BP systolic 100–156; BP diastolic 56–92; PULSE 55–93; RESP 12–22; TEMP 98.1–98.3; O2SAT 94–100
[2016-10-09] MEDS: PIPERACIL-TAZO 3.375 GM PREMIX 50 ML IV SCH ×3 (01:16→16:27)
[2016-10-09] MEDS: FLUCONAZOLE 400 MG PREMIX BAG 200 ML IV SCH (01:16)
[2016-10-09] MEDS: RESP: ALBUTEROL 2.5 MG/IPRATROPIUM 0.5 MG NEB (SCH) INH ×2 (03:56→08:16)
[2016-10-09] MEDS: CHLORHEXIDINE GLUCONATE 2 % 1 PACK (2 CLOTHS) TOP SCH (04:15)
[2016-10-09] MEDS: PROPOFOL 1000 MG/100 ML INJ 100 ML IV SCH ×2 (04:17→08:36)
[2016-10-09 04:39] LABS: AUTOMATED NEUTROPHIL # 5.7 TH/MM3 (1.8-7.7); BASOPHIL % 0.2 % (0.0-2.0); EOSINOPHIL # 0.2 TH/MM3 (0-0.4); EOSINOPHIL % 3.1 % (0.0-4.0); HEMATOCRIT 27.5 % (35.0-46.0); HEMO FLAGS DIFF FINAL; LYMPH % 9.6 % (9.0-44.0); LYMPHOCYTE # 0.6 TH/MM3 (1.0-4.8); MEAN CELL VOLUME 91.6 FL (80.0-100.0); MEAN CORPUSCULAR HEMOGLOBIN 29.3 PG (27.0-34.0); MEAN CORPUSCULAR HGB CONC 31.9 % (32.0-36.0); MONO % 2.9 % (0.0-8.0); NEUT % 84.2 % (16.0-70.0); PLATELET COUNT 182 TH/MM3 (150-450); RED CELL DISTRIBUTION WIDTH 20.1 % (11.6-17.2); WHITE BLOOD COUNT 6.8 TH/MM3 (4.0-11.0)
[2016-10-09 05:36] LABS: BICARBONATE 24.7 MEQ/L (21.0-32.0); CALCIUM-PROTEIN CORRECTED 8.3 MG/DL (8.5-10.1); POTASSIUM 3.4 MEQ/L (3.5-5.1); TOTAL BILIRUBIN ADULT 0.2 MG/DL (0.2-1.0)
[2016-10-09] MEDS: ICU - POTASSIUM CHLORIDE/AQUEOUS SOLN 40 MEQ/100 ML IVPB IV PRN (05:48)
--- NOTE | 2016-10-09 06:05 | HHI.CCPN ---
Subjective Remarks/Hospital Course 86-year-old female with past history of COPD, GERD, hypertension, hyperlipidemia, hypothyroidism, chronic pain with pain pump L flank transferred from [facility] due to concern for esophageal perforation. Patient originally presented to [facility] emergency Department on at around 8 PM complaining of difficulty swallowing after she had eaten some steak around [address] Nazario with gastroenterology took her to GI lab for endoscopy where she was noted to have significant esophagitis. There was a large foreign body with steak in the esophagus. He made multiple passes with net and tripod and was able to remove 6-7 large pieces of steak but states there was still a large amount of residual foreign body when procedure concluded after unintentional esophageal perforation distal third of esophagus. Dr. Nazario discussed with Dr. Hernandez with [facility] who agreed to see patient in consultation with metallurgical engineer admission. Patient is awake alert, anxious on the ventilator upon arrival with propofol at 80 g per KG per minute. Normotensive. 10/08: Appreciate input from consultants. We are presently dealing with full blown ETOH withdrawal as well. 10/09: Complete obstruction distal esophagus. Is this impacted meat or an EG junction malignancy? No leak observed on contrast swallow. Patient remains afebrile and normal white count. I would think next move is EGD. Objective Vital Signs Date Time Temp Pulse Resp B/P Pulse Ox O2 Delivery O2 Flow Rate FiO2 10/09/16 04:00 40 10/09/16 04:00 98.2 55 12 102/56 96 10/08/16 19:00 Mechanical Ventilator 12.00 Intake and Output 10/08/16 10/08/16 10/09/16 08:00 16:00 00:00 Intake Total 1025 ml 1250 ml 1252 ml Output Total 600 ml 1500 ml 1050 ml Balance 425 ml -250 ml 202 ml Result Diagram: 10/09/16 0430 10/09/16 0430 Objective Remarks GENERAL: female, anxious appearing. SKIN: Warm and dry. HEAD: Atraumatic. Normocephalic. EYES: Pupils equal and round, 2 mm reactive. No scleral icterus. ENT: No nasal bleeding or discharge. NECK: Trachea midline. CARDIOVASCULAR: Regular rate and rhythm. No murmurs rubs or gallops. RESPIRATORY: No accessory muscle use. Clear to auscultation. No subcutaneous emphysema GASTROINTESTINAL: Abdomen soft, non-tender, nondistended. Bowel sounds present. Pain pump palpable left flank. MUSCULOSKELETAL: Extremities without clubbing, cyanosis, or edema. Well perfused. NEUROLOGICAL: Awake and alert, nodding to questions while on ventilator.. No obvious cranial nerve deficits. Motor grossly within normal limits., Moving all extremities spontaneously and to command. A/P Problem List: (1) COPD (chronic obstructive pulmonary disease) ICD Code: J44.9 Status: Chronic (2) Acute respiratory failure ICD Code: J96.00 Status: Acute (3) Tobacco abuse ICD Code: Z72.0 Status: Chronic (4) Chronic pain ICD Code: G89.29 Status: Chronic (5) Hypothyroid ICD Code: E03.9 Status: Chronic (6) Esophageal foreign body ICD Code: T18.108A Status: Acute (7) Accidental esophageal perforation during procedure ICD Code: K91.72 Status: Acute (8) Esophagitis ICD Code: K20.9 Status: Chronic (9) Depression ICD Code: F32.9 Status: Chronic (10) GERD (gastroesophageal reflux disease) ICD Code: K21.9 Status: Chronic (11) Hyperlipidemia ICD Code: E78.5 Status: Chronic (12) HTN (hypertension) ICD Code: I10 Status: Chronic Assessment and Plan NEURO: Chronic pain Pain pump in place Depression Propofol for sedation. Fentanyl drip sedation Target RASS -1 - 0 Hold amitriptyline 75 mg by mouth daily. RESP: Acute respiratory failure COPD Tobacco abuse PRVC tidal volume 450/rate 16/P5/FiO2 35%. Chest x-raysatisfactory endotracheal tube position, bibasilar opacities, no subcutaneous edema. DuoNeb every 6 hours. Albuterol every 2 hours as needed. Appears patient was on prednisone 40 mg daily as outpatient - reluctant to continue unless hypotension ensues. We need good mucosal healing. CV: Hypertension Hyperlipidemia Hold home Norvasc 5 mg by mouth daily. Hold atorvastatin 40 mg by mouth daily at bedtime GI: GERD Esophagitis Esophageal foreign body, meat impaction Concern for esophageal perforation, distal 1/3 of esophagus Endoscopy performed at [facility]. Dr. Nazario states unable to fully remove foreign body despite multiple attempts and concern that there was an unintentional perforation of the esophagus. FEN/RENAL: Schneider in place. Monitor intake and output. Monitor electrolytes and replace as indicated ID: Concern for esophageal perforation. Empiric therapy with Zosyn 3.375 g IV every 8 hours; Diflucan 400 mg IV daily ( history of chronic PPI/steroid use). Blood cultures were obtained HEME: Obtain CBC ENDO: Hypothyroidism Home Synthroid dose is 175 g daily. Check TSH and initiate IV synthroid. PROPH: SCDs for DVT prophylaxis. Protonix 40 mg IV daily for stress ulcer prophylaxis and history of GERD. ACCESS: Peripheral IV providing adequate access at this time. Overall impression: No leukocytosis. Pleural effusions remain. Multiple recommendations reviewed. She is critically ill with esophageal perforation ( albeit likely micro) and ETOH withdrawal complicate the issue. Continue abx coverage. Critical Care 35 mins Problem Qualifiers (1) Esophageal foreign body: Qualified Code: T18.108D - Esophageal foreign body, subsequent encounter Neo Currie MD October 09, 2016 06:05
[2016-10-09] MEDS: fentaNYL DRIP 250 ML IV SCH (07:45)
[2016-10-09] MEDS: PANTOPRAZOLE SODIUM 40 MG VIAL IV SCH (09:14)
[2016-10-09] MEDS: SODIUM CHLORIDE 0.9% FLUSH 10 ML FLUSH SCH ×2 (09:14→20:15)
[2016-10-09] MEDS: SODIUM CHLOR 0.9% 1000 ML INJ 1,000 ML IV SCH ×2 (09:18→16:26)
[2016-10-09] MEDS: CHLORHEXIDINE 0.12% (ORAL KIT) 15 ML CUP MT SCH ×2 (09:20→20:00)
--- NOTE | 2016-10-09 13:13 | PD.CAR.PN ---
CVT Progress Note Subjective/Hospital Course: 86-year-old female with past history of COPD, GERD, hypertension, hyperlipidemia, hypothyroidism, chronic pain with pain pump L flank transferred from [facility] due to concern for esophageal perforation. Patient originally presented to [facility] emergency Department on at around 8 PM complaining of difficulty swallowing after she had eaten some steak around [address] Nazario with gastroenterology took her to GI lab for endoscopy where she was noted to have significant esophagitis. There was a large foreign body with steak in the esophagus. He made multiple passes with net and tripod and was able to remove 6-7 large pieces of steak but states there was still a large amount of residual foreign body when procedure concluded after unintentional esophageal perforation distal third of esophagus. Dr. Nazario discussed with Dr. 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 Patient is awake alert, anxious on the ventilator upon arrival with propofol at 80 g per KG per minute. Normotensive. 10/08: Appreciate input from consultants. We are presently dealing with full blown ETOH withdrawal as well. 10/09: pt was also experiencing ETOH withdrawal Barium swallow Complete obstruction distal esophagus. Is this impacted meat or an EG junction malignancy? No leak observed on contrast swallow. recommend EGD, general surgery intervention or transfer to tertiary center pt extubated this am, following command s Objective: GENERAL: pt anxious , undergoing weaning parameters SKIN: Warm and dry HEAD: Normocephalic. EYES: No scleral icterus. No injection or drainage. NECK: Supple, trachea midline. No JVD or lymphadenopathy. CARDIOVASCULAR: Regular rate and rhythm without murmurs, gallops, or rubs. RESPIRATORY: coarse breath sounds orally intubated Breath sounds equal bilaterally. No accessory muscle use. GASTROINTESTINAL: ng tube in place / Abdomen soft, non-tender, nondistended. MUSCULOSKELETAL: No cyanosis, or edema. BACK: Nontender without obvious deformity. No CVA tenderness. Vital Signs Date Time Temp Pulse Resp B/P Pulse Ox O2 Delivery O2 Flow Rate FiO2 10/09/16 12:00 98.1 92 22 156/92 100 10/09/16 12:00 92 10/09/16 11:42 95 Nasal Cannula 2.00 10/09/16 10:00 93 10/09/16 09:56 99 Nasal Cannula 2 10/09/16 08:24 35 10/09/16 08:19 100 35 10/09/16 08:00 98.2 65 12 128/78 100 10/09/16 08:00 67 10/09/16 08:00 40 10/09/16 07:00 100 Mechanical Ventilator 12.00 40 10/09/16 06:00 68 10/09/16 04:00 40 10/09/16 04:00 98.2 55 12 102/56 96 10/09/16 04:00 55 10/09/16 02:00 65 10/09/16 01:01 98 40 10/09/16 00:00 98.3 68 12 100/58 95 10/09/16 00:00 40 10/09/16 00:00 67 10/08/16 22:00 63 10/08/16 21:46 99 40 10/08/16 20:00 40 10/08/16 20:00 98.2 66 16 92/55 94 10/08/16 20:00 66 10/08/16 19:00 98 Mechanical Ventilator 12.00 40 10/08/16 16:00 98.1 67 12 92/56 100 10/08/16 16:00 40 10/08/16 15:30 99 60 Labs: Laboratory Tests Test 10/09/16 04:30 White Blood Count 6.8 TH/MM3 (4.0-11.0) Red Blood Count 3.00 MIL/MM3 (4.00-5.30) Hemoglobin 8.8 GM/DL (11.6-15.3) Hematocrit 27.5 % (35.0-46.0) Mean Corpuscular Volume 91.6 FL (80.0-100.0) Mean Corpuscular Hemoglobin 29.3 PG (27.0-34.0) Mean Corpuscular Hemoglobin 31.9 % Concent (32.0-36.0) Red Cell Distribution Width 20.1 % (11.6-17.2) Platelet Count 182 TH/MM3 (150-450) Mean Platelet Volume 7.5 FL (7.0-11.0) Neutrophils (%) (Auto) 84.2 % (16.0-70.0) Lymphocytes (%) (Auto) 9.6 % (9.0-44.0) Monocytes (%) (Auto) 2.9 % (0.0-8.0) Eosinophils (%) (Auto) 3.1 % (0.0-4.0) Basophils (%) (Auto) 0.2 % (0.0-2.0) Neutrophils # (Auto) 5.7 TH/MM3 (1.8-7.7) Lymphocytes # (Auto) 0.6 TH/MM3 (1.0-4.8) Monocytes # (Auto) 0.2 TH/MM3 (0-0.9) Eosinophils # (Auto) 0.2 TH/MM3 (0-0.4) Basophils # (Auto) 0.0 TH/MM3 (0-0.2) CBC Comment DIFF FINAL Differential Comment Sodium Level 147 MEQ/L (136-145) Potassium Level 3.4 MEQ/L (3.5-5.1) Chloride Level 113 MEQ/L (98-107) Carbon Dioxide Level 24.7 MEQ/L (21.0-32.0) Anion Gap 9 MEQ/L (5-15) Blood Urea Nitrogen 8 MG/DL (7-18) Creatinine 0.56 MG/DL (0.50-1.00) Estimat Glomerular Filtration 112 ML/MIN Rate (>89) Random Glucose 77 MG/DL (74-106) Calcium Level 7.3 MG/DL (8.5-10.1) Protein Corrected Calcium 8.3 MG/DL (8.5-10.1) Total Bilirubin 0.2 MG/DL (0.2-1.0) Aspartate Amino Transf 13 U/L (15-37) (AST/SGOT) Alanine Aminotransferase 14 U/L (10-53) (ALT/SGPT) Alkaline Phosphatase 74 U/L (45-117) Total Protein 5.3 GM/DL (6.4-8.2) Albumin 1.9 GM/DL (3.4-5.0) (Heidi Rodas) Subjective/Hospital Course: Patient is 56, not 86! (Phuong Hernandez MD) Result Diagram: 10/09/[id number]/16429 Telemetry: NSR (Heidi Rodas) (1) Acute respiratory failure Plan: improved, undergoing weaning parameters for extubation per [facility] (2) COPD (chronic obstructive pulmonary disease) Plan: nebs/ ABX (3) Esophagitis (4) Esophageal foreign body Plan: await eval for potential EGD/ vs general surgery eval (5) Accidental esophageal perforation during procedure (Heidi Rodas) Problem Qualifiers (1) Esophageal foreign body: Qualified Code: T18.108D - Esophageal foreign body, subsequent encounter Heidi Rodas October 09, 2016 13:13 Phuong Hernandez MD October 09, 2016 15:32
--- NOTE | 2016-10-09 13:27 | HHI.GIFU ---
Subjective Remarks Extubated, alert and asymptomatic. Objective Vitals I&O Vital Signs Date Time Temp Pulse Resp B/P Pulse Ox O2 Delivery O2 Flow Rate FiO2 10/09/16 12:00 98.1 92 22 156/92 100 10/09/16 12:00 92 10/09/16 11:42 95 Nasal Cannula 2.00 10/09/16 10:00 93 10/09/16 09:56 99 Nasal Cannula 2 10/09/16 08:24 35 10/09/16 08:19 100 35 10/09/16 08:00 98.2 65 12 128/78 100 10/09/16 08:00 67 10/09/16 08:00 40 10/09/16 07:00 100 Mechanical Ventilator 12.00 40 10/09/16 06:00 68 10/09/16 04:00 40 10/09/16 04:00 98.2 55 12 102/56 96 10/09/16 04:00 55 10/09/16 02:00 65 10/09/16 01:01 98 40 10/09/16 00:00 98.3 68 12 100/58 95 10/09/16 00:00 40 10/09/16 00:00 67 10/08/16 22:00 63 10/08/16 21:46 99 40 10/08/16 20:00 40 10/08/16 20:00 98.2 66 16 92/55 94 10/08/16 20:00 66 10/08/16 19:00 98 Mechanical Ventilator 12.00 40 10/08/16 16:00 98.1 67 12 92/56 100 10/08/16 16:00 40 10/08/16 15:30 99 60 I/O 10/08/16 10/08/16 10/08/16 10/09/16 10/09/16 10/09/16 07:00 15:00 23:00 07:00 15:00 23:00 Intake Total 1025 ml 1250 ml 1252 ml 1094 ml Output Total 600 ml 1500 ml 1050 ml 625 ml Balance 425 ml -250 ml 202 ml 469 ml Intake IV Total 1025 ml 1250 ml 1252 ml 1094 ml Output Urine Total 600 ml 1500 ml 1050 ml 625 ml # Bowel Movements 0 0 0 Laboratory Laboratory Tests Test 10/09/16 04:30 White Blood Count 6.8 Red Blood Count 3.00 Hemoglobin 8.8 Hematocrit 27.5 Mean Corpuscular Volume 91.6 Mean Corpuscular Hemoglobin 29.3 Mean Corpuscular Hemoglobin 31.9 Concent Red Cell Distribution Width 20.1 Platelet Count 182 Mean Platelet Volume 7.5 Neutrophils (%) (Auto) 84.2 Lymphocytes (%) (Auto) 9.6 Monocytes (%) (Auto) 2.9 Eosinophils (%) (Auto) 3.1 Basophils (%) (Auto) 0.2 Neutrophils # (Auto) 5.7 Lymphocytes # (Auto) 0.6 Monocytes # (Auto) 0.2 Eosinophils # (Auto) 0.2 Basophils # (Auto) 0.0 CBC Comment DIFF FINAL Differential Comment Sodium Level 147 Potassium Level 3.4 Chloride Level 113 Carbon Dioxide Level 24.7 Anion Gap 9 Blood Urea Nitrogen 8 Creatinine 0.56 Estimat Glomerular Filtration 112 Rate Random Glucose 77 Calcium Level 7.3 Protein Corrected Calcium 8.3 Total Bilirubin 0.2 Aspartate Amino Transf 13 (AST/SGOT) Alanine Aminotransferase 14 (ALT/SGPT) Alkaline Phosphatase 74 Total Protein 5.3 Albumin 1.9 Date/Time Procedure Status Source Growth 10/07/16 13:41 Gram Stain - Final Complete Sputum Endotracheal 10/07/16 13:41 Sputum Culture - Final Complete Sputum Endotracheal HEAVY GROWTH NORMAL RESPIRATORY KETURAH 10/07/16 02:10 Aerobic Blood Culture - Preliminary Resulted Blood Peripheral NO GROWTH IN 2 DAYS 10/07/16 02:10 Anaerobic Blood Culture - Preliminary Resulted Streptococcus Species Physical Exam HEENT:Intubated, NG tube in place CHEST: Chest is clear to auscultation and percussion. CARDIAC: Regular rate and rhythm with no murmur gallop or rubs. ABDOMEN: Soft, nondistended, nontender; no hepatosplenomegaly; bowel sounds are present in all four quadrants. EXTREMITIES: No clubbing, cyanosis, or edema. Assessment and Plan Plan ASSESSMENT - Esophageal perforation - pt sent from [place] after EGD for foreign body removal and suspected esophageal perforation. Pt intubated. CT 10-07-16 --> mixed density prominence in distal esophagus which may be retained impacted food bolus, air external to esophagus in lower mediastinum and significant extraluminal gas present at GE junction and visualized upper abd at multiple sites. - Foreign body esophagus - per EMR not all of steak removed from pts esophagus. PLAN - Supportive care - Continue naso-esophageal tube - To consider repeating the study tomorrow, since asymptomatic now. - Will follow up with you. Neelima Granados MD October 09, 2016 13:27
[2016-10-09] MEDS ORDERED: Vancomycin Consult Pharmacy 1 EA OTHER SCH (14:30)
[2016-10-09] MEDS: DEXAMETHASONE SOD PHOS 4 MG/ML VIAL IV PUSH SCH ×2 (14:35→17:10)
[2016-10-09] MEDS: VANCOMYCIN INJ 1,500 MG in SODIUM CHLORID 0.9% 500 ML INJ 500 ML IV SCH (17:09)
[2016-10-10] VITALS (14 sets, daily range): BP systolic 111–156; BP diastolic 69–89; PULSE 68–88; RESP 10–16; TEMP 97.7–98.4; O2SAT 93–97
[2016-10-10] MEDS: DEXAMETHASONE SOD PHOS 4 MG/ML VIAL IV PUSH SCH ×2 (00:32→06:02)
[2016-10-10] MEDS: PIPERACIL-TAZO 3.375 GM PREMIX 50 ML IV SCH (00:32)
[2016-10-10] MEDS: SODIUM CHLOR 0.9% 1000 ML INJ 1,000 ML IV SCH ×3 (00:33→17:00)
[2016-10-10] MEDS: FLUCONAZOLE 400 MG PREMIX BAG 200 ML IV SCH (03:01)
[2016-10-10] MEDS: CHLORHEXIDINE GLUCONATE 2 % 1 PACK (2 CLOTHS) TOP SCH (04:00)
[2016-10-10 04:46] LABS: AUTOMATED NEUTROPHIL # 8.7 TH/MM3 (1.8-7.7); BASOPHIL % 0.2 % (0.0-2.0); HEMATOCRIT 35.4 % (35.0-46.0); HEMO FLAGS DIFF FINAL; LYMPH % 4.3 % (9.0-44.0); LYMPHOCYTE # 0.4 TH/MM3 (1.0-4.8); MEAN CELL VOLUME 93.1 FL (80.0-100.0); MEAN CORPUSCULAR HGB CONC 31.2 % (32.0-36.0); MONO % 1.3 % (0.0-8.0); NEUT % 94.2 % (16.0-70.0); PLATELET COUNT 255 TH/MM3 (150-450); WHITE BLOOD COUNT 9.2 TH/MM3 (4.0-11.0)
[2016-10-10] MEDS: VANCOMYCIN INJ 1,500 MG in SODIUM CHLORID 0.9% 500 ML INJ 500 ML IV SCH ×2 (06:02→17:00)
--- NOTE | 2016-10-10 07:41 | HHI.CCPN ---
Subjective Remarks/Hospital Course 56-year-old female with past history of COPD, GERD, hypertension, hyperlipidemia, hypothyroidism, chronic pain with pain pump L flank transferred from [facility] [place] due to concern for esophageal perforation. Patient originally presented to [facility] emergency Department on at around 8 PM complaining of difficulty swallowing after she had eaten some steak around [address] Nazario with gastroenterology took her to GI lab for endoscopy where she was noted to have significant esophagitis. There was a large foreign body with steak in the esophagus. He made multiple passes with net and tripod and was able to remove 6-7 large pieces of steak but states there was still a large amount of residual foreign body when procedure concluded after unintentional esophageal perforation distal third of esophagus. Dr. Nazario discussed with Dr. Hernandez with [facility] who agreed to see patient in consultation with monologist admission. Patient is awake alert, anxious on the ventilator upon arrival with propofol at 80 g per KG per minute. Normotensive. 10/08: Appreciate input from consultants. We are presently dealing with full blown ETOH withdrawal as well. 10/09: Complete obstruction distal esophagus. Is this impacted meat or an EG junction malignancy? No leak observed on contrast swallow. Patient remains afebrile and normal white count. I would think next move is EGD. 10/10: Extubated and cooperative. Objective Vital Signs Date Time Temp Pulse Resp B/P Pulse Ox O2 Delivery O2 Flow Rate FiO2 10/10/16 06:00 68 10/10/16 04:00 97.9 16 133/79 93 10/09/16 20:35 Nasal Cannula 2.00 10/09/16 08:24 35 Intake and Output 10/09/16 10/09/16 10/10/16 08:00 16:00 00:00 Intake Total 1094 ml 1427 ml 1003 ml Output Total 625 ml 1800 ml 1375 ml Balance 469 ml -373 ml -372 ml Result Diagram: 10/10/16 0433 10/09/16 0430 Other Results Microbiology Date/Time Procedure Status Source Growth 10/07/16 13:41 Gram Stain - Final Complete Sputum Endotracheal 10/07/16 13:41 Sputum Culture - Final Complete Sputum Endotracheal HEAVY GROWTH NORMAL RESPIRATORY KETURAH Objective Remarks GENERAL: female, anxious appearing. SKIN: Warm and dry. HEAD: Atraumatic. Normocephalic. EYES: Pupils equal and round, 2 mm reactive. No scleral icterus. ENT: No nasal bleeding or discharge. NECK: Trachea midline. CARDIOVASCULAR: Regular rate and rhythm. No murmurs rubs or gallops. RESPIRATORY: No accessory muscle use. Clear to auscultation. No subcutaneous emphysema GASTROINTESTINAL: Abdomen soft, non-tender, nondistended. Bowel sounds present. Pain pump palpable left flank. MUSCULOSKELETAL: Extremities without clubbing, cyanosis, or edema. Well perfused. NEUROLOGICAL: Awake and alert, conversant. No obvious cranial nerve deficits. Motor grossly within normal limits., Moving all extremities spontaneously and to command. A/P Problem List: (1) COPD (chronic obstructive pulmonary disease) ICD Code: J44.9 Status: Chronic (2) Acute respiratory failure ICD Code: J96.00 Status: Acute (3) Tobacco abuse ICD Code: Z72.0 Status: Chronic (4) Chronic pain ICD Code: G89.29 Status: Chronic (5) Hypothyroid ICD Code: E03.9 Status: Chronic (6) Esophageal foreign body ICD Code: T18.108A Status: Acute (7) Accidental esophageal perforation during procedure ICD Code: K91.72 Status: Acute (8) Esophagitis ICD Code: K20.9 Status: Chronic (9) Depression ICD Code: F32.9 Status: Chronic (10) GERD (gastroesophageal reflux disease) ICD Code: K21.9 Status: Chronic (11) Hyperlipidemia ICD Code: E78.5 Status: Chronic (12) HTN (hypertension) ICD Code: I10 Status: Chronic Assessment and Plan NEURO: Chronic pain Pain pump in place Depression Propofol for sedation. Fentanyl drip sedation Target RASS -1 - 0 Hold amitriptyline 75 mg by mouth daily. RESP: Acute respiratory failure COPD Tobacco abuse PRVC tidal volume 450/rate 16/P5/FiO2 35%. Chest x-raysatisfactory endotracheal tube position, bibasilar opacities, no subcutaneous edema. DuoNeb every 6 hours. Albuterol every 2 hours as needed. Appears patient was on prednisone 40 mg daily as outpatient - reluctant to continue unless hypotension ensues. We need good mucosal healing. CV: Hypertension Hyperlipidemia Hold home Norvasc 5 mg by mouth daily. Hold atorvastatin 40 mg by mouth daily at bedtime GI: GERD Esophagitis Esophageal foreign body, meat impaction Concern for esophageal perforation, distal 1/3 of esophagus Endoscopy performed at [facility] [place]. Dr. Nazario states unable to fully remove foreign body despite multiple attempts and concern that there was an unintentional perforation of the esophagus. Contrast swallow with no leak but complete distal esphogeal obstruction. FEN/RENAL: Schneider in place. Monitor intake and output. Monitor electrolytes and replace as indicated ID: Concern for esophageal perforation. Empiric therapy with Zosyn 3.375 g IV every 8 hours; Diflucan 400 mg IV daily ( history of chronic PPI/steroid use). Blood cultures were obtained HEME: Obtain CBC ENDO: Hypothyroidism Home Synthroid dose is 175 g daily. Check TSH and initiate IV synthroid. PROPH: SCDs for DVT prophylaxis. Protonix 40 mg IV daily for stress ulcer prophylaxis and history of GERD. ACCESS: Peripheral IV providing adequate access at this time. Overall impression: No leukocytosis. Afebrile and asymptomatic. Multiple recommendations reviewed. Need to finalize approach. D/C PIP/JHONNY, continue vanc until blood culture speciation. Problem Qualifiers (1) Esophageal foreign body: Qualified Code: T18.108D - Esophageal foreign body, subsequent encounter Neo Currie MD Oct 10, 2016 07:41
[2016-10-10] MEDS: CHLORHEXIDINE 0.12% (ORAL KIT) 15 ML CUP MT SCH ×2 (08:56→20:00)
[2016-10-10] MEDS: SODIUM CHLORIDE 0.9% FLUSH 10 ML FLUSH SCH (08:57)
[2016-10-10] MEDS: PANTOPRAZOLE SODIUM 40 MG VIAL IV SCH (08:57)
[2016-10-10] MEDS: ICU - POTASSIUM CHLORIDE/AQUEOUS SOLN 40 MEQ/100 ML IVPB IV PRN ×2 (09:41→09:42)
--- NOTE | 2016-10-10 17:38 | HHI.GIFU ---
Subjective Remarks Pt resting comfortably in bed. She c/o mildly sore throat. No other complaints. (Linda Garrison) Objective Vitals I&O Vital Signs Date Time Temp Pulse Resp B/P Pulse Ox O2 Delivery O2 Flow Rate FiO2 10/10/16 16:00 98.4 80 10 127/77 94 10/10/16 16:00 80 10/10/16 14:00 72 10/10/16 12:00 98.4 76 12 130/89 94 10/10/16 12:00 76 10/10/16 10:00 77 10/10/16 09:36 94 Nasal Cannula 2.50 10/10/16 08:00 98.3 88 11 156/86 95 10/10/16 08:00 68 10/10/16 07:00 95 Nasal Cannula 2.00 10/10/16 06:00 68 10/10/16 04:00 69 10/10/16 04:00 97.9 69 16 133/79 93 10/10/16 02:00 80 10/10/16 00:00 98.4 81 12 126/78 94 10/10/16 00:00 78 10/09/16 22:00 80 10/09/16 20:35 96 Nasal Cannula 2.00 10/09/16 20:00 98.2 78 14 139/81 94 10/09/16 20:00 78 10/09/16 19:00 94 Nasal Cannula 2.00 10/09/16 18:00 89 I/O 10/09/16 10/09/16 10/09/16 10/10/16 10/10/16 10/10/16 07:00 15:00 23:00 07:00 15:00 23:00 Intake Total 1094 ml 1427 ml 1003 ml 421 ml 1415 ml Output Total 625 ml 1800 ml 1375 ml 500 ml 700 ml Balance 469 ml -373 ml -372 ml -79 ml 715 ml Intake IV Total 1094 ml 1427 ml 1003 ml 421 ml 1415 ml Output Urine Total 625 ml 1800 ml 1375 ml 500 ml 700 ml # Bowel Movements 0 0 0 0 1 Laboratory Laboratory Tests Test 10/10/16 04:33 White Blood Count 9.2 Red Blood Count 3.80 Hemoglobin 11.0 Hematocrit 35.4 Mean Corpuscular Volume 93.1 Mean Corpuscular Hemoglobin 29.0 Mean Corpuscular Hemoglobin 31.2 Concent Red Cell Distribution Width 19.0 Platelet Count 255 Mean Platelet Volume 7.5 Neutrophils (%) (Auto) 94.2 Lymphocytes (%) (Auto) 4.3 Monocytes (%) (Auto) 1.3 Eosinophils (%) (Auto) 0.0 Basophils (%) (Auto) 0.2 Neutrophils # (Auto) 8.7 Lymphocytes # (Auto) 0.4 Monocytes # (Auto) 0.1 Eosinophils # (Auto) 0.0 Basophils # (Auto) 0.0 CBC Comment DIFF FINAL Differential Comment Date/Time Procedure Status Source Growth 10/07/16 13:41 Gram Stain - Final Complete Sputum Endotracheal 10/07/16 13:41 Sputum Culture - Final Complete Sputum Endotracheal HEAVY GROWTH NORMAL RESPIRATORY KETURAH 10/07/16 02:10 Aerobic Blood Culture - Preliminary Resulted Blood Peripheral NO GROWTH IN 3 DAYS 10/07/16 02:10 Anaerobic Blood Culture - Final Resulted Viridans Streptococcus Grp Imaging Last Impressions Upper GI/Barium Swallow X-Ray 10/08/16 0000 Signed Impressions: Service Date/Time: Saturday, October 08, 2016 15:28 - CONCLUSION: Complete obstruction of the distal esophagus. Jenaro Leblanc MD Chest X-Ray 10/08/16 0000 Signed Impressions: Service Date/Time: Saturday, October 08, 2016 12:23 - CONCLUSION: 1. The NG tube appears to be in the upper to mid thoracic esophagus 2. Otherwise, no significant changes. Jenaro Leblanc MD Chest CT 10/07/16 0000 Signed Impressions: Service Date/Time: Friday, October 07, 2016 03:08 - CONCLUSION: Significant extraluminal gas in the lower mediastinum and visualized upper abdomen. Perihilar and bibasilar parenchymal infiltrates. Sabas Enciso MD Physical Exam HEENT:Intubated, NG tube in place CHEST: Chest is clear to auscultation and percussion. CARDIAC: Regular rate and rhythm with no murmur gallop or rubs. ABDOMEN: Soft, nondistended, nontender; no hepatosplenomegaly; bowel sounds are present in all four quadrants. EXTREMITIES: No clubbing, cyanosis, or edema. (Linda Garrison) Assessment and Plan Plan ASSESSMENT - Esophageal perforation - pt sent from [place] after EGD for foreign body removal and suspected esophageal perforation. Pt intubated. CT 10-07-16 --> mixed density prominence in distal esophagus which may be retained impacted food bolus, air external to esophagus in lower mediastinum and significant extraluminal gas present at GE junction and visualized upper abd at multiple sites. - Foreign body esophagus - per EMR not all of steak removed from pts esophagus. PLAN - Supportive care - Continue naso-esophageal tube - further recommendations to follow - Will follow up with you. This pt seen by myself and Dr cruz and this note is written on his behalf ( Linda Garrison) Physician Comments Seen and examined with Linda, will consider EGD considering high risk with recent perforation and recently spontaneous sealed off perf. Will discuss it with primary team Further recommendations to follow. (Neelima Cruz MD) Linda Garrison Oct 10, 2016 17:38 Neelima Cruz MD Oct 10, 2016 22:47
[2016-10-11] VITALS (10 sets, daily range): BP systolic 101–164; BP diastolic 56–94; PULSE 60–96; RESP 10–24; TEMP 98–98.7; O2SAT 92–99
[2016-10-11] MEDS: SODIUM CHLOR 0.9% 1000 ML INJ 1,000 ML IV SCH ×3 (00:07→23:58)
[2016-10-11] MEDS: SODIUM CHLORIDE 0.9% FLUSH 10 ML FLUSH SCH ×3 (00:07→21:00)
[2016-10-11] MEDS: FLUCONAZOLE 400 MG PREMIX BAG 200 ML IV SCH (01:23)
[2016-10-11] MEDS: CHLORHEXIDINE GLUCONATE 2 % 1 PACK (2 CLOTHS) TOP SCH ×2 (04:00→23:59)
[2016-10-11] MEDS: VANCOMYCIN INJ 1,500 MG in SODIUM CHLORID 0.9% 500 ML INJ 500 ML IV SCH (05:34)
[2016-10-11] MEDS: fentaNYL DRIP 250 ML IV SCH (05:40)
[2016-10-11] MEDS ORDERED: PHARMACY ORDERED LAB ONE (05:45)
--- NOTE | 2016-10-11 07:53 | HHI.CCPN ---
Subjective Remarks/Hospital Course 56-year-old female with past history of COPD, GERD, hypertension, hyperlipidemia, hypothyroidism, chronic pain with pain pump L flank transferred from [facility] [place] due to concern for esophageal perforation. Patient originally presented to [facility] emergency Department on at around 8 PM complaining of difficulty swallowing after she had eaten some steak around [address] Nazario with gastroenterology took her to GI lab for endoscopy where she was noted to have significant esophagitis. There was a large foreign body with steak in the esophagus. He made multiple passes with net and tripod and was able to remove 6-7 large pieces of steak but states there was still a large amount of residual foreign body when procedure concluded after unintentional esophageal perforation distal third of esophagus. Dr. Nazario discussed with Dr. Hernandez with [facility] who agreed to see patient in consultation with project management director admission. Patient is awake alert, anxious on the ventilator upon arrival with propofol at 80 g per KG per minute. Normotensive. 10/08: Appreciate input from consultants. We are presently dealing with full blown ETOH withdrawal as well. 10/09: Complete obstruction distal esophagus. Is this impacted meat or an EG junction malignancy? No leak observed on contrast swallow. Patient remains afebrile and normal white count. I would think next move is EGD. 10/10: Extubated and cooperative. 10/11: Hopefully we can try diagnostic endoscopy again, fully aware that risks are increased. Objective Vital Signs Date Time Temp Pulse Resp B/P Pulse Ox O2 Delivery O2 Flow Rate FiO2 10/11/16 06:00 64 10/11/16 04:00 98.2 10 120/67 97 10/10/16 22:21 Nasal Cannula 2.00 10/09/16 08:24 35 Intake and Output 10/10/16 10/10/16 10/11/16 08:00 16:00 00:00 Intake Total 421 ml 1415 ml 1217 ml Output Total 500 ml 700 ml 350 ml Balance -79 ml 715 ml 867 ml Result Diagram: 10/10/16 0433 10/11/16 0530 Objective Remarks GENERAL: female, calm. SKIN: Warm and dry. HEAD: Atraumatic. Normocephalic. EYES: Pupils equal and round, 3 mm reactive. No scleral icterus. ENT: No nasal bleeding or discharge. NECK: Trachea midline. Airway widely patent. CARDIOVASCULAR: Regular rate and rhythm. No murmurs rubs or gallops. No JVD. RESPIRATORY: No accessory muscle use. Clear to auscultation. No subcutaneous emphysema GASTROINTESTINAL: Abdomen soft, non-tender, nondistended. Bowel sounds present. Pain pump palpable left flank. MUSCULOSKELETAL: Extremities without clubbing, cyanosis, or edema. Well perfused. NEUROLOGICAL: Awake and alert, conversant. Motor grossly within normal limits., Moving all extremities spontaneously and to command. A/P Problem List: (1) COPD (chronic obstructive pulmonary disease) ICD Code: J44.9 Status: Chronic (2) Acute respiratory failure ICD Code: J96.00 Status: Acute (3) Tobacco abuse ICD Code: Z72.0 Status: Chronic (4) Chronic pain ICD Code: G89.29 Status: Chronic (5) Hypothyroid ICD Code: E03.9 Status: Chronic (6) Esophageal foreign body ICD Code: T18.108A Status: Acute (7) Accidental esophageal perforation during procedure ICD Code: K91.72 Status: Acute (8) Esophagitis ICD Code: K20.9 Status: Chronic (9) Depression ICD Code: F32.9 Status: Chronic (10) GERD (gastroesophageal reflux disease) ICD Code: K21.9 Status: Chronic (11) Hyperlipidemia ICD Code: E78.5 Status: Chronic (12) HTN (hypertension) ICD Code: I10 Status: Chronic Assessment and Plan NEURO: Chronic pain Pain pump in place Depression Propofol for sedation. Fentanyl drip sedation Target RASS -1 - 0 Hold amitriptyline 75 mg by mouth daily. RESP: Acute respiratory failure COPD Tobacco abuse PRVC tidal volume 450/rate 16/P5/FiO2 35%. Chest x-raysatisfactory endotracheal tube position, bibasilar opacities, no subcutaneous edema. DuoNeb every 6 hours. Albuterol every 2 hours as needed. Appears patient was on prednisone 40 mg daily as outpatient - reluctant to continue unless hypotension ensues. We need good mucosal healing. Resolved CV: Hypertension Hyperlipidemia Hold home Norvasc 5 mg by mouth daily. Hold atorvastatin 40 mg by mouth daily at bedtime GI: GERD Esophagitis Esophageal foreign body, meat impaction Concern for esophageal perforation, distal 1/3 of esophagus Endoscopy performed at [facility]. Dr. Nazario states unable to fully remove foreign body despite multiple attempts and concern that there was an unintentional perforation of the esophagus. Contrast swallow with no leak but complete distal esophageal obstruction. Stricture vs malignancy FEN/RENAL: Schneider in place. Monitor intake and output. Monitor electrolytes and replace as indicated ID: Concern for esophageal perforation. D/C Zosyn 3.375 g IV every 8 hours; Diflucan 400 mg IV daily (history of chronic PPI/steroid use). Blood cultures were obtained -> Strep viridans. Continue Vanc pending ID advice. HEME: Obtain CBC ENDO: Hypothyroidism Home Synthroid dose is 175 g daily. Check TSH and initiate IV synthroid. PROPH: SCDs for DVT prophylaxis. Protonix 40 mg IV daily for stress ulcer prophylaxis and history of GERD. ACCESS: Peripheral IV providing adequate access at this time. CVL Day #3 Overall impression: No leukocytosis. Afebrile and asymptomatic. Multiple recommendations reviewed. Continue vanc until ID reviews. Problem Qualifiers (1) Esophageal foreign body: Qualified Code: T18.108D - Esophageal foreign body, subsequent encounter Neo Currie MD Oct 11, 2016 07:53
[2016-10-11] MEDS: CHLORHEXIDINE 0.12% (ORAL KIT) 15 ML CUP MT SCH ×2 (08:00→20:00)
--- NOTE | 2016-10-11 10:08 | PD.CONS ---
History of Present Illness Service Infectious disease Consult Requested By Dr Amelia Currie Reason for Consult Evaluate patient with positive blood cultures, with strep viridans Primary Care Physician Kevin Ulloa M.D. Diagnoses: History of Present Illness Patient seen and examined. Records reviewed. Patient is a 56-year-old female admitted to the hospital for further management of an esophageal perforation. She was initially hospitalized at [facility] where she presented complaining all difficulty swallowing. She apparently had eaten some steak and presented with findings of impacted foreign body. She underwent upper endoscopy, and removal of pieces of steak, and apparently there was still a lot of impacted food, and there was unintentional esophageal perforation in the distal third of the esophagus during the procedure. Patient was transferred to [facility] for further evaluation by cardiothoracic surgery. She was intubated. On presentation to [place] she was on the vent, and had normal hemodynamics. She had barium swallow done and there was findings of complete obstruction of the distal esophagus, but no obvious evidence of esophageal leak. There was abnormal findings in the distal esophagus on CT of the chest with findings of air in the distal esophagus and in the medicine just fine. Patient was initially on Zosyn and Diflucan. She has remained afebrile. Also patient according to the notes had symptoms of alcohol withdrawal, and she was treated for this and has stabilized. She was successfully extubated yesterday. One all the 2 blood cultures done on admission is reported as growing strep viridans. Patient currently remains on nothing by mouth. She has an NG tube in place that is to low intermittent suction. GI evaluating the patient for possible repeat upper endoscopy today. Her hemodynamics are stable. Infectious disease consultation has been requested to evaluate the patient with positive blood culture. Review of Systems Constitutional: DENIES: Fever, Chills Eyes: DENIES: Eye pain Ears, nose, mouth, throat: DENIES: Nasal discharge, Oral lesions, Throat pain, Ear Pain Respiratory: DENIES: Cough, Shortness of breath Cardiovascular: DENIES: Chest pain, Palpitations Gastrointestinal: DENIES: Abdominal pain, Diarrhea, Nausea, Vomiting Musculoskeletal: DENIES: Joint pain, Joint Swelling Integumentary: DENIES: Pruritus Neurologic: DENIES: Headache Psychiatric: DENIES: Hallucinations Past Family Social History Allergies: Coded Allergies: No Known Allergies (Unverified , 10/07/16) Past Medical History Chronic pain Hypothyroidism COPD Hypertension Hyperlipidemia GERD Depression Past Surgical History Bilateral tubal ligation Correction of deviated septum History of tubal Pilonidal cyst Cervical fusion Breast lumpectomy Laminectomy Active Ordered Medications Albuterol Dulcolax Ativan Zofran Potassium Vancomycin IV Social History I ppd ?ETOH No illicit drug use Physical Exam Vital Signs Vital Signs Date Time Temp Pulse Resp B/P Pulse Ox O2 Delivery O2 Flow Rate FiO2 10/11/16 07:57 96 Nasal Cannula 2.00 10/11/16 06:00 64 10/11/16 04:00 98.2 67 10 120/67 97 10/11/16 04:00 67 10/11/16 00:00 98.0 74 13 101/56 92 10/11/16 00:00 74 10/10/16 22:21 97 Nasal Cannula 2.00 10/10/16 22:00 71 10/10/16 20:00 97.7 72 16 111/69 97 10/10/16 20:00 97 Nasal Cannula 2.00 10/10/16 20:00 72 10/10/16 18:00 72 10/10/16 16:00 98.4 80 10 127/77 94 10/10/16 16:00 80 10/10/16 14:00 72 10/10/16 12:00 98.4 76 12 130/89 94 10/10/16 12:00 76 10/10/16 10:00 77 Physical Exam GENERAL: Patient is a well-nourished, well-developed CF, awake and alert, not in respiratory distress. SKIN: Warm and dry. No generalized rash, no ecchymoses and no evidence of embolic lesions. HEAD: Atraumatic. Normocephalic. No temporal wasting, or tenderness. EYES: [place] conjunctiva. No petechia or hemorrhage. Pupils equal, round and reactive to light. Extraocular movements full and intact. No scleral icterus. No injection or drainage. EARS, NOSE AND THROAT: Nose without bleeding or purulent nasal discharge. No sinus tenderness. Mucous membranes pink and moist. No oral lesions noted. No exudate. No oral thrush. Has NGT in place NECK: Trachea midline. Supple and not tender, no meningeal signs CARDIOVASCULAR: Regular rate and rhythm. No murmurs, rubs or gallops heard RESPIRATORY: Clear to auscultation. Breath sounds equal bilaterally. No rales , wheezing or rhonchi. Decreased at bases. ABDOMEN: Soft, non-tender, mildly distended. Bowel sounds present and normoactive. No guarding. No rebound. No organomegaly. EXTREMITIES: No clubbing, cyanosis, or edema. No joint effusion, has good ROM. No calf tenderness. Well perfused and warm. NEUROLOGICAL: Awake and alert. Cranial nerves grossly intact. Motor grossly within normal limits. PSYCHIATRIC: Normal affect, calm and cooperative. LINE: No evidence of infection : Schneider cath in place, urine looks clear Laboratory Laboratory Tests Test 10/11/16 05:30 Creatinine 0.54 Estimat Glomerular Filtration 117 Rate Date/Time Procedure Status Source Growth 10/07/16 13:41 Gram Stain - Final Complete Sputum Endotracheal 10/07/16 13:41 Sputum Culture - Final Complete Sputum Endotracheal HEAVY GROWTH NORMAL RESPIRATORY KETURAH 10/07/16 02:10 Aerobic Blood Culture - Preliminary Resulted Blood Peripheral NO GROWTH IN 3 DAYS 10/07/16 02:10 Anaerobic Blood Culture - Final Resulted Viridans Streptococcus Grp Result Diagram: 10/10/16 0433 10/11/16 0530 Imaging RADIOLOGY STUDIES/FILMS REVIEWED Upper GI/Barium Swallow X-Ray 10/08/16 0000 Signed Impressions: Service Date/Time: Saturday, October 08, 2016 15:28 - CONCLUSION: Complete obstruction of the distal esophagus. Jenaro Leblanc MD Chest X-Ray 10/08/16 0000 Signed Impressions: Service Date/Time: Saturday, October 08, 2016 12:23 - CONCLUSION: 1. The NG tube appears to be in the upper to mid thoracic esophagus 2. Otherwise, no significant changes. Jeanro Leblanc MD Chest CT 10/07/16 0000 Signed Impressions: Service Date/Time: Friday, October 07, 2016 03:08 - CONCLUSION: Significant extraluminal gas in the lower mediastinum and visualized upper abdomen. Perihilar and bibasilar parenchymal infiltrates. Sabas Enciso MD Assessment and Plan Assessment and Plan IMPRESSION Distal esophagus perforation during EGD for removal of FB, likely sealed off (? ) Complete obstruction distal esophagus on swallowing study with no evidence of leak One (+) BC with Strep viridans, ?real, ?possibly transient from perforation Known COPD RECOMMENDATION IV Unasyn GI evaluating patient for repeat EGD to evaluate the obstruction Repeat BC Follow C/S Monitor progress I will determine course of Abx and need once work-up completed I will follow along with you Thank you for rthis consultation Mary Petty MD Oct 11, 2016 10:08
[2016-10-11] MEDS: PANTOPRAZOLE SODIUM 40 MG VIAL IV SCH (11:05)
[2016-10-11] MEDS: AMPICILLIN-SULBACTAM INJ 3 GM in SODIUM CHLORIDE 0.9% INJ 100 ML IV SCH ×3 (11:05→23:59)
--- NOTE | 2016-10-11 15:20 | PD.TRANSFR ---
Transfer Summary Admission Date October 07, 2016 at 00:31 Transfer Date: Oct 11, 2016 Admitting Diagnosis Diagnoses: (1) COPD (chronic obstructive pulmonary disease) Diagnosis: Secondary (2) Acute respiratory failure Diagnosis: Secondary (3) Tobacco abuse Diagnosis: Secondary (4) Chronic pain Diagnosis: Secondary (5) Hypothyroid Diagnosis: Secondary (6) Esophageal foreign body Diagnosis: Principal (7) Accidental esophageal perforation during procedure Diagnosis: Principal (8) Esophagitis Diagnosis: Secondary (9) Depression Diagnosis: Secondary (10) GERD (gastroesophageal reflux disease) Diagnosis: Secondary (11) Hyperlipidemia Diagnosis: Secondary (12) HTN (hypertension) Diagnosis: Secondary Significant Findings Complete obstruction distal esophagus. Transfer Summary/Subjective Transferred from [place] with impacted meat in distal esophagus. Intubated at OSH. Outside GI Doc could not remove impacted meat but caused microperforation so she was shipped to [place]. Extubated 2 days ago and doing well. Gastrograffin swallow reveals complete obstruction of distal esophagus but no leak. One blood culture positive for Strep viridans; on Unasyn by ID service. GI trying to decide when to scope her. The NG tube is in her mid-esophagus to catch oral secretions. Objective Vital Signs Date Time Temp Pulse Resp B/P Pulse Ox O2 Delivery O2 Flow Rate FiO2 10/11/16 15:09 72 10/11/16 12:00 98.4 12 146/83 96 10/11/16 10:00 Nasal Cannula 2.00 10/09/16 08:24 35 Intake and Output 10/10/16 10/10/16 10/10/16 07:59 15:59 23:59 Intake Total 421 ml 1415 ml 1217 ml Output Total 500 ml 700 ml 350 ml Balance -79 ml 715 ml 867 ml Result Diagram: 10/10/16 0433 10/11/16 0530 Objective Remarks GENERAL: female, calm. SKIN: Warm and dry. HEAD: Atraumatic. Normocephalic. EYES: Pupils equal and round, 3 mm reactive. No scleral icterus. ENT: No nasal bleeding or discharge. NECK: Trachea midline. Airway widely patent. CARDIOVASCULAR: Regular rate and rhythm. No murmurs rubs or gallops. No JVD. RESPIRATORY: No accessory muscle use. Clear to auscultation. No subcutaneous emphysema GASTROINTESTINAL: Abdomen soft, non-tender, nondistended. Bowel sounds present. Pain pump palpable left flank. MUSCULOSKELETAL: Extremities without clubbing, cyanosis, or edema. Well perfused. NEUROLOGICAL: Awake and alert, conversant. Motor grossly within normal limits., Moving all extremities spontaneously and to command. A/P Problem List: (1) COPD (chronic obstructive pulmonary disease) ICD Code: J44.9 Status: Chronic (2) Acute respiratory failure ICD Code: J96.00 Status: Acute (3) Tobacco abuse ICD Code: Z72.0 Status: Chronic (4) Chronic pain ICD Code: G89.29 Status: Chronic (5) Hypothyroid ICD Code: E03.9 Status: Chronic (6) Esophageal foreign body ICD Code: T18.108A Status: Acute (7) Accidental esophageal perforation during procedure ICD Code: K91.72 Status: Acute (8) Esophagitis ICD Code: K20.9 Status: Chronic (9) Depression ICD Code: F32.9 Status: Chronic (10) GERD (gastroesophageal reflux disease) ICD Code: K21.9 Status: Chronic (11) Hyperlipidemia ICD Code: E78.5 Status: Chronic (12) HTN (hypertension) ICD Code: I10 Status: Chronic Assessment and Plan NEURO: Chronic pain Pain pump in place Depression Propofol for sedation. Fentanyl drip sedation Target RASS -1 - 0 Hold amitriptyline 75 mg by mouth daily. RESP: Acute respiratory failure COPD Tobacco abuse PRVC tidal volume 450/rate 16/P5/FiO2 35%. Chest x-raysatisfactory endotracheal tube position, bibasilar opacities, no subcutaneous edema. DuoNeb every 6 hours. Albuterol every 2 hours as needed. Appears patient was on prednisone 40 mg daily as outpatient - reluctant to continue unless hypotension ensues. We need good mucosal healing. Resolved CV: Hypertension Hyperlipidemia Hold home Norvasc 5 mg by mouth daily. Hold atorvastatin 40 mg by mouth daily at bedtime GI: GERD Esophagitis Esophageal foreign body, meat impaction Concern for esophageal perforation, distal 1/3 of esophagus Endoscopy performed at [facility]. Dr. Nazario states unable to fully remove foreign body despite multiple attempts and concern that there was an unintentional perforation of the esophagus. Contrast swallow with no leak but complete distal esophageal obstruction. Stricture vs malignancy FEN/RENAL: Schneider in place. Monitor intake and output. Monitor electrolytes and replace as indicated ID: Concern for esophageal perforation. D/C Zosyn 3.375 g IV every 8 hours; Diflucan 400 mg IV daily (history of chronic PPI/steroid use). Blood cultures were obtained -> Strep viridans. Continue Vanc pending ID advice. HEME: Obtain CBC ENDO: Hypothyroidism Home Synthroid dose is 175 g daily. Check TSH and initiate IV synthroid. PROPH: SCDs for DVT prophylaxis. Protonix 40 mg IV daily for stress ulcer prophylaxis and history of GERD. ACCESS: Peripheral IV providing adequate access at this time. CVL Day #3 Overall impression: No leukocytosis. Afebrile and asymptomatic. Multiple recommendations reviewed. Continue vanc until ID reviews. Problem Qualifiers (1) Esophageal foreign body: Qualified Code: T18.108D - Esophageal foreign body, subsequent encounter Neo Currie MD Oct 11, 2016 15:20
[2016-10-12] VITALS (12 sets, daily range): BP systolic 125–147; BP diastolic 62–89; PULSE 54–86; RESP 12–18; TEMP 97.2–99.2; O2SAT 96–100
[2016-10-12] MEDS: SODIUM CHLOR 0.9% 1000 ML INJ 1,000 ML IV SCH ×4 (02:27→21:40)
[2016-10-12] MEDS: PANTOPRAZOLE SODIUM 40 MG VIAL IV SCH (08:14)
[2016-10-12] MEDS: CHLORHEXIDINE 0.12% (ORAL KIT) 15 ML CUP MT SCH ×2 (08:18→20:00)
[2016-10-12] MEDS: SODIUM CHLORIDE 0.9% FLUSH 10 ML FLUSH SCH ×2 (09:00→21:33)
[2016-10-12] MEDS: AMPICILLIN-SULBACTAM INJ 3 GM in SODIUM CHLORIDE 0.9% INJ 100 ML IV SCH ×3 (09:32→21:36)
--- NOTE | 2016-10-12 11:42 | HHI.PR ---
Subjective Remarks Follow-up microperforation of the esophagus/foreign body in esophagus 10/12/16-patient seen and examined by me currently nothing by mouth and denies any throat pain. Vitals stable. Objective Vitals Vital Signs Date Time Temp Pulse Resp B/P Pulse Ox O2 Delivery O2 Flow Rate FiO2 10/12/16 08:03 99 Nasal Cannula 2.00 10/12/16 06:00 58 10/12/16 04:00 57 10/12/16 04:00 98.7 57 12 125/62 100 10/12/16 02:00 58 10/12/16 00:00 98.7 54 12 132/79 99 10/12/16 00:00 60 10/11/16 21:20 97 Nasal Cannula 2.00 10/11/16 20:00 98.0 68 12 164/74 99 10/11/16 19:00 99 Nasal Cannula 2.00 10/11/16 16:00 98.1 60 22 151/94 99 10/11/16 15:09 72 10/11/16 12:00 98.4 60 12 146/83 96 I/O 10/11/16 10/11/16 10/11/16 10/12/16 10/12/16 10/12/16 06:59 14:59 22:59 06:59 14:59 22:59 Intake Total 1140 ml 2287 ml 1125 ml Output Total 350 ml 900 ml 450 ml Balance 790 ml 1387 ml 675 ml Intake Oral 0 ml 0 ml 0 ml IV Total 1140 ml 2287 ml 1125 ml Output Urine Total 350 ml 900 ml 450 ml Stool Total 0 ml Gastric Drainage Total 0 ml # Bowel Movements 0 1 Result Diagram: 10/10/16 0433 10/11/16 0530 Imaging Last Impressions Upper GI/Barium Swallow X-Ray 10/08/16 0000 Signed Impressions: Service Date/Time: Saturday, October 08, 2016 15:28 - CONCLUSION: Complete obstruction of the distal esophagus. Jenaro Leblanc MD Chest X-Ray 10/08/16 0000 Signed Impressions: Service Date/Time: Saturday, October 08, 2016 12:23 - CONCLUSION: 1. The NG tube appears to be in the upper to mid thoracic esophagus 2. Otherwise, no significant changes. Jenaro Leblanc MD Chest CT 10/07/16 0000 Signed Impressions: Service Date/Time: Friday, October 07, 2016 03:08 - CONCLUSION: Significant extraluminal gas in the lower mediastinum and visualized upper abdomen. Perihilar and bibasilar parenchymal infiltrates. Sabas Enciso MD Objective Remarks GENERAL: NAD with NGT in place SKIN: Warm and dry. HEAD: Normocephalic. EYES: No scleral icterus. No injection or drainage. NECK: Supple, trachea midline. No JVD or lymphadenopathy. CARDIOVASCULAR: Regular rate and rhythm without murmurs, gallops, or rubs. RESPIRATORY: Breath sounds equal bilaterally. No accessory muscle use. GASTROINTESTINAL: Abdomen soft, non-tender, nondistended. MUSCULOSKELETAL: No cyanosis, or edema. BACK: Nontender without obvious deformity. No CVA tenderness. A/P Problem List: (1) COPD (chronic obstructive pulmonary disease) ICD Code: J44.9 Status: Chronic (2) Acute respiratory failure ICD Code: J96.00 Status: Acute (3) Tobacco abuse ICD Code: Z72.0 Status: Chronic (4) Chronic pain ICD Code: G89.29 Status: Chronic (5) Hypothyroid ICD Code: E03.9 Status: Chronic (6) Esophageal foreign body ICD Code: T18.108A Status: Acute (7) Accidental esophageal perforation during procedure ICD Code: K91.72 Status: Acute (8) Esophagitis ICD Code: K20.9 Status: Chronic (9) Depression ICD Code: F32.9 Status: Chronic (10) GERD (gastroesophageal reflux disease) ICD Code: K21.9 Status: Chronic (11) Hyperlipidemia ICD Code: E78.5 Status: Chronic (12) HTN (hypertension) ICD Code: I10 Status: Chronic Assessment and Plan 56-year-old female with GERD Esophagitis Esophageal foreign body, meat impaction Concern for esophageal perforation, distal 1/3 of esophagus Endoscopy performed at [facility]. Dr. Nazario states unable to fully remove foreign body despite multiple attempts and concern that there was an unintentional perforation of the esophagus. Contrast swallow with no leak but complete distal esophageal obstruction. Appreciate input from gastroenterology May start tube feed Chronic pain Pain pump in place Depression Hold amitriptyline 75 mg by mouth daily until patient is able to tolerate by mouth Acute respiratory failure-resolved COPD Tobacco abuse Chest x-raysatisfactory endotracheal tube position, bibasilar opacities, no subcutaneous edema. DuoNeb every 6 hours. Albuterol every 2 hours as needed. Hypertension Hyperlipidemia Hold home Norvasc 5 mg by mouth daily until patient is able to tolerate by mouth Hold atorvastatin 40 mg by mouth daily at bedtime until patient is able to tolerate by mouth Concern for esophageal perforation. Strep viridans Currently on Unasyn per infectious disease specialist and monitor cultures Hypothyroidism Home Synthroid dose is 175 g daily. Continue IV Synthroid. PROPH: SCDs for DVT prophylaxis. Protonix 40 mg IV daily for stress ulcer prophylaxis and history of GERD. Problem Qualifiers (1) Esophageal foreign body: Qualified Code: T18.108D - Esophageal foreign body, subsequent encounter Luis Velazquez MD Oct 12, 2016 11:42
--- NOTE | 2016-10-12 14:37 | HHI.GIFU ---
Subjective Remarks Patient is resting in bed, not voicing any complaints except that she hasn't had any thing to eat for a long time. (Aguilar Logan) Objective Vitals I&O Vital Signs Date Time Temp Pulse Resp B/P Pulse Ox O2 Delivery O2 Flow Rate FiO2 10/12/16 12:00 60 10/12/16 10:00 58 10/12/16 08:03 99 Nasal Cannula 2.00 10/12/16 08:00 61 10/12/16 08:00 98.4 58 12 147/86 98 10/12/16 07:00 98 Nasal Cannula 2.00 10/12/16 06:00 58 10/12/16 04:00 57 10/12/16 04:00 98.7 57 12 125/62 100 10/12/16 02:00 58 10/12/16 00:00 98.7 54 12 132/79 99 10/12/16 00:00 60 10/11/16 21:20 97 Nasal Cannula 2.00 10/11/16 20:00 98.0 68 12 164/74 99 10/11/16 19:00 99 Nasal Cannula 2.00 10/11/16 16:00 98.1 60 22 151/94 99 10/11/16 15:09 72 I/O 10/11/16 10/11/16 10/11/16 10/12/16 10/12/16 10/12/16 07:00 15:00 23:00 07:00 15:00 23:00 Intake Total 1140 ml 2287 ml 1125 ml 1079 ml Output Total 350 ml 900 ml 450 ml 650 ml Balance 790 ml 1387 ml 675 ml 429 ml Intake Oral 0 ml 0 ml 0 ml IV Total 1140 ml 2287 ml 1125 ml 1079 ml Output Urine Total 350 ml 900 ml 450 ml 650 ml Stool Total 0 ml Gastric Drainage Total 0 ml # Bowel Movements 0 1 Laboratory Date/Time Procedure Status Source Growth 10/11/16 12:16 Aerobic Blood Culture - Preliminary Resulted Blood Peripheral NO GROWTH IN 1 DAY 10/11/16 12:16 Anaerobic Blood Culture - Preliminary Resulted Blood Peripheral NO GROWTH IN 1 DAY Imaging Last Impressions Upper GI/Barium Swallow X-Ray 10/08/16 0000 Signed Impressions: Service Date/Time: Saturday, October 08, 2016 15:28 - CONCLUSION: Complete obstruction of the distal esophagus. Jenaro Leblanc MD Chest X-Ray 10/08/16 0000 Signed Impressions: Service Date/Time: Saturday, October 08, 2016 12:23 - CONCLUSION: 1. The NG tube appears to be in the upper to mid thoracic esophagus 2. Otherwise, no significant changes. Jenaro Leblanc MD Chest CT 10/07/16 0000 Signed Impressions: Service Date/Time: Friday, October 07, 2016 03:08 - CONCLUSION: Significant extraluminal gas in the lower mediastinum and visualized upper abdomen. Perihilar and bibasilar parenchymal infiltrates. Sabas Enciso MD Physical Exam HEENT: NG tube in place CHEST: Chest is clear to auscultation and percussion. CARDIAC: Regular rate and rhythm with no murmur gallop or rubs. ABDOMEN: Soft, nondistended, nontender; no hepatosplenomegaly; bowel sounds are present in all four quadrants. EXTREMITIES: No clubbing, cyanosis, or edema. Neurology: Alert and oriented (Aguilar Logan) Assessment and Plan Plan ASSESSMENT - Esophageal perforation - pt sent from [place] after EGD for foreign body removal and suspected esophageal perforation. Pt intubated. CT 10-07-16 --> mixed density prominence in distal esophagus which may be retained impacted food bolus, air external to esophagus in lower mediastinum and significant extraluminal gas present at GE junction and visualized upper abd at multiple sites. BS showed complete obstruction of distal esophagus - Foreign body esophagus - per EMR not all of steak removed from pts esophagus. PLAN - Patient at increased risk for another EGD considering recent perf - Possible EGD on Friday - Continue naso-esophageal tube - GS, cardiothoracic surgeon on the case and no indication that there is a perf into the chest or abdomen, this is likely a mucosal injury - further recommendations to follow This pt seen by myself and Dr cruz and this note is written on his behalf ( Aguilar Logan) Physician Comments Seen and examined, plan as above, for repeat gastrograffin swallow followed by EGD friday. (Neelima Cruz MD) Aguilar Logan Oct 12, 2016 14:36 Neelima Cruz MD Oct 12, 2016 18:03
[2016-10-12] MEDS: CHLORHEXIDINE GLUCONATE 2 % 1 PACK (2 CLOTHS) TOP SCH (23:23)
[2016-10-13] VITALS (7 sets, daily range): BP systolic 120–150; BP diastolic 68–97; PULSE 57–69; RESP 14–18; TEMP 97–99.2; O2SAT 93–100
[2016-10-13] MEDS: CHLORHEXIDINE GLUCONATE 2 % 1 PACK (2 CLOTHS) TOP SCH (06:13)
[2016-10-13] MEDS: AMPICILLIN-SULBACTAM INJ 3 GM in SODIUM CHLORIDE 0.9% INJ 100 ML IV SCH ×4 (06:15→22:51)
[2016-10-13 07:23] LABS: BASOPHIL % 0.4 % (0.0-2.0); EOSINOPHIL # 0.2 TH/MM3 (0-0.4); EOSINOPHIL % 2.6 % (0.0-4.0); HEMATOCRIT 33.5 % (35.0-46.0); HEMO FLAGS DIFF FINAL; LYMPH % 12.4 % (9.0-44.0); LYMPHOCYTE # 1.1 TH/MM3 (1.0-4.8); MEAN CELL VOLUME 92.1 FL (80.0-100.0); MEAN CORPUSCULAR HEMOGLOBIN 29.2 PG (27.0-34.0); MEAN CORPUSCULAR HGB CONC 31.7 % (32.0-36.0); MONO % 6.6 % (0.0-8.0); PLATELET COUNT 271 TH/MM3 (150-450); RED BLOOD COUNT 3.64 MIL/MM3 (4.00-5.30); RED CELL DISTRIBUTION WIDTH 18.5 % (11.6-17.2)
[2016-10-13 07:47] LABS: BICARBONATE 24.2 MEQ/L (21.0-32.0); POTASSIUM 3.4 MEQ/L (3.5-5.1)
[2016-10-13] MEDS: CHLORHEXIDINE 0.12% (ORAL KIT) 15 ML CUP MT SCH ×2 (08:00→19:35)
[2016-10-13] MEDS ORDERED: DEXTROSE 50% IN WATER 50 ML SYRINGE ONE (08:46)
[2016-10-13] MEDS: SODIUM CHLORIDE 0.9% FLUSH 10 ML FLUSH SCH ×2 (09:19→19:36)
[2016-10-13] MEDS: PANTOPRAZOLE SODIUM 40 MG VIAL IV SCH (09:19)
[2016-10-13] MEDS: DEXT 5%-NACL 0.45% 1000 ML INJ 1,000 ML IV SCH ×3 (10:00→19:36)
[2016-10-13] MEDS ORDERED: GLUCAGON 1 MG/ML VIAL OTHER PRN (10:30)
[2016-10-13] MEDS ORDERED: DEXTROSE 50% IN WATER 50 ML VIAL(D50) IV PUSH PRN (10:30)
--- NOTE | 2016-10-13 12:03 | HHI.GIFU ---
Subjective Remarks Same condition and asymptomatic Objective Vitals I&O Vital Signs Date Time Temp Pulse Resp B/P Pulse Ox O2 Delivery O2 Flow Rate FiO2 10/13/16 10:14 93 Nasal Cannula 2.00 10/13/16 08:00 97.4 64 14 120/76 94 10/13/16 04:33 98 Nasal Cannula 2.00 10/13/16 00:20 97.3 69 18 124/77 100 10/12/16 20:15 97.4 60 17 131/75 98 10/12/16 20:00 98 Nasal Cannula 2.00 10/12/16 17:35 97.2 61 18 145/89 99 10/12/16 16:00 57 10/12/16 16:00 98.2 58 16 133/78 98 10/12/16 14:00 86 I/O 10/12/16 10/12/16 10/12/16 10/13/16 10/13/16 10/13/16 07:00 15:00 23:00 07:00 15:00 23:00 Intake Total 1125 ml 1079 ml 0 ml 0 ml Output Total 450 ml 650 ml 600 ml 650 ml Balance 675 ml 429 ml -600 ml -650 ml Intake Oral 0 ml 0 ml 0 ml IV Total 1125 ml 1079 ml Output Urine Total 450 ml 650 ml 600 ml 650 ml Stool Total 0 ml Gastric Drainage Total 0 ml # Bowel Movements 0 0 Laboratory Laboratory Tests Test 10/13/16 05:50 White Blood Count 9.0 Red Blood Count 3.64 Hemoglobin 10.6 Hematocrit 33.5 Mean Corpuscular Volume 92.1 Mean Corpuscular Hemoglobin 29.2 Mean Corpuscular Hemoglobin 31.7 Concent Red Cell Distribution Width 18.5 Platelet Count 271 Mean Platelet Volume 7.9 Neutrophils (%) (Auto) 78.0 Lymphocytes (%) (Auto) 12.4 Monocytes (%) (Auto) 6.6 Eosinophils (%) (Auto) 2.6 Basophils (%) (Auto) 0.4 Neutrophils # (Auto) 7.0 Lymphocytes # (Auto) 1.1 Monocytes # (Auto) 0.6 Eosinophils # (Auto) 0.2 Basophils # (Auto) 0.0 CBC Comment DIFF FINAL Differential Comment Sodium Level 142 Potassium Level 3.4 Chloride Level 107 Carbon Dioxide Level 24.2 Anion Gap 11 Blood Urea Nitrogen 8 Creatinine 0.39 Estimat Glomerular Filtration 171 Rate Random Glucose 44 Calcium Level 8.0 Date/Time Procedure Status Source Growth 10/11/16 12:16 Aerobic Blood Culture - Preliminary Resulted Blood Peripheral NO GROWTH IN 2 DAYS 10/11/16 12:16 Anaerobic Blood Culture - Preliminary Resulted Blood Peripheral NO GROWTH IN 2 DAYS Physical Exam HEENT: NG tube in place CHEST: Chest is clear to auscultation and percussion. CARDIAC: Regular rate and rhythm with no murmur gallop or rubs. ABDOMEN: Soft, nondistended, nontender; no hepatosplenomegaly; bowel sounds are present in all four quadrants. EXTREMITIES: No clubbing, cyanosis, or edema. Neurology: Alert and oriented Assessment and Plan Plan ASSESSMENT - Esophageal perforation - pt sent from [place] after EGD for foreign body removal and suspected esophageal perforation. Pt intubated. CT 10-07-16 --> mixed density prominence in distal esophagus which may be retained impacted food bolus, air external to esophagus in lower mediastinum and significant extraluminal gas present at GE junction and visualized upper abd at multiple sites. BS showed complete obstruction of distal esophagus - Foreign body esophagus - per EMR not all of steak removed from pts esophagus. PLAN - Patient at increased risk for another EGD considering recent perf - Gastrograffin Swallow for tomorrow. - Continue naso-esophageal tube - Possible EGD pending UGI study - Keep NPO for now - further recommendations to follow Neelima Granados MD Oct 13, 2016 12:03
--- NOTE | 2016-10-13 12:37 | HHI.PR ---
Subjective Remarks Follow-up microperforation of the esophagus/foreign body in esophagus 10/12/16-patient seen and examined by me currently nothing by mouth and denies any throat pain. Vitals stable. 10/13/16-patient seen and examined, she has symptomatic episode of hypoglycemia. No other issues Objective Vitals Vital Signs Date Time Temp Pulse Resp B/P Pulse Ox O2 Delivery O2 Flow Rate FiO2 10/13/16 10:14 93 Nasal Cannula 2.00 10/13/16 08:00 97.4 64 14 120/76 94 10/13/16 04:33 98 Nasal Cannula 2.00 10/13/16 00:20 97.3 69 18 124/77 100 10/12/16 20:15 97.4 60 17 131/75 98 10/12/16 20:00 98 Nasal Cannula 2.00 10/12/16 17:35 97.2 61 18 145/89 99 10/12/16 16:00 57 10/12/16 16:00 98.2 58 16 133/78 98 10/12/16 14:00 86 I/O 10/12/16 10/12/16 10/12/16 10/13/16 10/13/16 10/13/16 07:00 15:00 23:00 07:00 15:00 23:00 Intake Total 1125 ml 1079 ml 0 ml 0 ml Output Total 450 ml 650 ml 600 ml 650 ml Balance 675 ml 429 ml -600 ml -650 ml Intake Oral 0 ml 0 ml 0 ml IV Total 1125 ml 1079 ml Output Urine Total 450 ml 650 ml 600 ml 650 ml Stool Total 0 ml Gastric Drainage Total 0 ml # Bowel Movements 0 0 Result Diagram: 10/13/16 0550 10/13/16 0550 Objective Remarks GENERAL: NAD with NGT in place SKIN: Warm and dry. HEAD: Normocephalic. EYES: No scleral icterus. No injection or drainage. NECK: Supple, trachea midline. No JVD or lymphadenopathy. CARDIOVASCULAR: Regular rate and rhythm without murmurs, gallops, or rubs. RESPIRATORY: Breath sounds equal bilaterally. No accessory muscle use. GASTROINTESTINAL: Abdomen soft, non-tender, nondistended. MUSCULOSKELETAL: No cyanosis, or edema. BACK: Nontender without obvious deformity. No CVA tenderness. A/P Problem List: (1) COPD (chronic obstructive pulmonary disease) ICD Code: J44.9 Status: Chronic (2) Acute respiratory failure ICD Code: J96.00 Status: Acute (3) Tobacco abuse ICD Code: Z72.0 Status: Chronic (4) Chronic pain ICD Code: G89.29 Status: Chronic (5) Hypothyroid ICD Code: E03.9 Status: Chronic (6) Esophageal foreign body ICD Code: T18.108A Status: Acute (7) Accidental esophageal perforation during procedure ICD Code: K91.72 Status: Acute (8) Esophagitis ICD Code: K20.9 Status: Chronic (9) Depression ICD Code: F32.9 Status: Chronic (10) GERD (gastroesophageal reflux disease) ICD Code: K21.9 Status: Chronic (11) Hyperlipidemia ICD Code: E78.5 Status: Chronic (12) HTN (hypertension) ICD Code: I10 Status: Chronic (13) Hypoglycemia, unspecified ICD Code: E16.2 Status: Acute Assessment and Plan 56-year-old female with GERD Esophagitis Esophageal foreign body, meat impaction Concern for esophageal perforation, distal 1/3 of esophagus Endoscopy performed at [facility]. Dr. Nazario states unable to fully remove foreign body despite multiple attempts and concern that there was an unintentional perforation of the esophagus. Contrast swallow with no leak but complete distal esophageal obstruction. Appreciate input from gastroenterology Plan for Gastrografin swallow 10/14/16 Chronic pain Pain pump in place Depression Hold amitriptyline 75 mg by mouth daily until patient is able to tolerate by mouth Acute respiratory failure-resolved COPD Tobacco abuse Chest x-raysatisfactory endotracheal tube position, bibasilar opacities, no subcutaneous edema. DuoNeb every 6 hours. Albuterol every 2 hours as needed. Hypertension Hyperlipidemia Hold home Norvasc 5 mg by mouth daily until patient is able to tolerate by mouth Hold atorvastatin 40 mg by mouth daily at bedtime until patient is able to tolerate by mouth Concern for esophageal perforation. Culture positive for Strep viridans Currently on Unasyn per infectious disease specialist and monitor cultures Hypothyroidism Home Synthroid dose is 175 g daily. Continue IV Synthroid. Hypoglycemia Change fluid to D5 half-normal and continue treatment for hypoglycemia protocol Repeat BMP in a.m. PROPH: SCDs for DVT prophylaxis. Protonix 40 mg IV daily for stress ulcer prophylaxis and history of GERD. Problem Qualifiers (1) Esophageal foreign body: Qualified Code: T18.108D - Esophageal foreign body, subsequent encounter Luis Velazquez MD Oct 13, 2016 12:37
[2016-10-14] VITALS (7 sets, daily range): BP systolic 125–150; BP diastolic 78–96; PULSE 60–79; RESP 15–17; TEMP 96.3–99; O2SAT 91–95
[2016-10-14] MEDS: AMPICILLIN-SULBACTAM INJ 3 GM in SODIUM CHLORIDE 0.9% INJ 100 ML IV SCH ×4 (05:03→21:45)
[2016-10-14 05:50] LABS: BICARBONATE 30.1 MEQ/L (21.0-32.0); POTASSIUM 3.2 MEQ/L (3.5-5.1)
[2016-10-14] MEDS: PANTOPRAZOLE SODIUM 40 MG VIAL IV SCH (07:54)
[2016-10-14] MEDS: SODIUM CHLORIDE 0.9% FLUSH 10 ML FLUSH SCH ×2 (09:00→21:45)
[2016-10-14] MEDS ORDERED: DIATRIZOATE MEGLUM/DIATRIZOATE SOD 120 ML BTL (for RAD DIAG) PO ONE (09:49)
--- NOTE | 2016-10-14 09:56 | RADRPT ---
EXAM DATE/TIME: 10/14/2016 09:36 [facility] COMPARISON: CT THORAX W/O CONTRAST, October 07, 2016, 3:08. GASTROGRAFIN SWALLOW, October 08, 2016, 15:28. INDICATIONS : Evaluate obstruction from foreign body and perforation. FLUORO TIME: 0.4 minutes IMAGE COUNT: 3 CONTRAST: 1. Gastrografin (Diatrizoate Meglumine and Diatrizoate Sodium) MEDICAL HISTORY : None. SURGICAL HISTORY : None. ENCOUNTER: Subsequent ACUITY: 1 week PAIN SCORE: 0/10 LOCATION: esophagus. FINDINGS: Previous Gastrografin swallow had shown complete obstruction distal esophagus. On today's study ther e is free of Gastrografin into the stomach. Moderate motion is present on the exam. CT scan is pend ing to exclude subtle leak. CONCLUSION: No obstruction. CT scan is pending. Ike Flaherty MD FACR on October 14, 2016 at 9:51 Board Certified Radiologist. This report was verified electronically.
[2016-10-14] MEDS: DEXT 5%-NACL 0.45% 1000 ML INJ 1,000 ML IV SCH ×2 (10:00→18:00)
--- NOTE | 2016-10-14 10:10 | HHI.PR ---
Subjective Remarks Follow-up microperforation of the esophagus/foreign body in esophagus 10/12/16-patient seen and examined by me currently nothing by mouth and denies any throat pain. Vitals stable. 10/13/16-patient seen and examined, she has symptomatic episode of hypoglycemia. No other issues 10/14/16-patient seen and examined, she accidentally pulled out NG tube last night. Currently nothing by mouth pending Gastrografin study today. Denies any abdominal pain. Objective Vitals Vital Signs Date Time Temp Pulse Resp B/P Pulse Ox O2 Delivery O2 Flow Rate FiO2 10/14/16 08:00 99.0 62 16 134/90 93 10/14/16 03:30 99.0 66 16 148/83 91 10/14/16 00:35 98.5 79 17 150/93 93 10/13/16 20:15 99.2 57 17 142/88 96 10/13/16 16:00 98.7 65 18 135/68 94 10/13/16 12:00 97.0 68 18 150/97 98 10/13/16 10:14 93 Nasal Cannula 2.00 I/O 10/13/16 10/13/16 10/13/16 10/14/16 10/14/16 10/14/16 07:00 15:00 23:00 07:00 15:00 23:00 Intake Total 0 ml 467 ml 1120 ml Output Total 650 ml 775 ml 350 ml 600 ml Balance -650 ml -775 ml 117 ml 520 ml Intake Oral 0 ml 0 ml 0 ml IV Total 467 ml 1120 ml Output Urine Total 650 ml 775 ml 350 ml 600 ml # Bowel Movements 0 0 0 1 Result Diagram: 10/13/16 0550 10/14/16 0510 Objective Remarks GENERAL: NAD SKIN: Warm and dry. HEAD: Normocephalic. EYES: No scleral icterus. No injection or drainage. NECK: Supple, trachea midline. No JVD or lymphadenopathy. CARDIOVASCULAR: Regular rate and rhythm without murmurs, gallops, or rubs. RESPIRATORY: Breath sounds equal bilaterally. No accessory muscle use. GASTROINTESTINAL: Abdomen soft, non-tender, nondistended. MUSCULOSKELETAL: No cyanosis, or edema. BACK: Nontender without obvious deformity. No CVA tenderness. A/P Problem List: (1) COPD (chronic obstructive pulmonary disease) ICD Code: J44.9 Status: Chronic (2) Acute respiratory failure ICD Code: J96.00 Status: Acute (3) Tobacco abuse ICD Code: Z72.0 Status: Chronic (4) Chronic pain ICD Code: G89.29 Status: Chronic (5) Hypothyroid ICD Code: E03.9 Status: Chronic (6) Esophageal foreign body ICD Code: T18.108A Status: Acute (7) Accidental esophageal perforation during procedure ICD Code: K91.72 Status: Acute (8) Esophagitis ICD Code: K20.9 Status: Chronic (9) Depression ICD Code: F32.9 Status: Chronic (10) GERD (gastroesophageal reflux disease) ICD Code: K21.9 Status: Chronic (11) Hyperlipidemia ICD Code: E78.5 Status: Chronic (12) HTN (hypertension) ICD Code: I10 Status: Chronic (13) Hypoglycemia, unspecified ICD Code: E16.2 Status: Acute Assessment and Plan 56-year-old female with GERD Esophagitis Esophageal foreign body, meat impaction Concern for esophageal perforation, distal 1/3 of esophagus Endoscopy performed at [facility]. Dr. Nazario states unable to fully remove foreign body despite multiple attempts and concern that there was an unintentional perforation of the esophagus. Contrast swallow with no leak but complete distal esophageal obstruction. Appreciate input from gastroenterology Plan for Gastrografin swallow today 10/14/16 Chronic pain Pain pump in place Depression Continue to Hold amitriptyline 75 mg by mouth daily until patient is able to tolerate by mouth Acute respiratory failure-resolved COPD Tobacco abuse Chest x-raysatisfactory endotracheal tube position, bibasilar opacities, no subcutaneous edema. DuoNeb every 6 hours. Albuterol every 2 hours as needed. Hypertension Hyperlipidemia Hold home Norvasc 5 mg by mouth daily until patient is able to tolerate by mouth Hold atorvastatin 40 mg by mouth daily at bedtime until patient is able to tolerate by mouth Concern for esophageal perforation. Culture positive for Strep viridans Currently on Unasyn per infectious disease specialist and monitor cultures Hypothyroidism Home Synthroid dose is 175 g daily. Continue IV Synthroid. Hypoglycemia Resolved and continue with D5 half-normal and continue treatment for hypoglycemia protocol PROPH: SCDs for DVT prophylaxis. Protonix 40 mg IV daily for stress ulcer prophylaxis and history of GERD. Problem Qualifiers (1) Esophageal foreign body: Qualified Code: T18.108D - Esophageal foreign body, subsequent encounter Luis Velazquez MD Oct 14, 2016 10:10
--- NOTE | 2016-10-14 11:01 | RADRPT ---
EXAM DATE/TIME: 10/14/2016 10:27 [facility] COMPARISON: No previous studies available for comparison. INDICATIONS : Evaluate for free air. ORAL CONTRAST: Prescribed oral contrast ingested. RADIATION DOSE: 11.16 CTDIvol (mGy) MEDICAL HISTORY : Hypertension. SURGICAL HISTORY : Implanted device ENCOUNTER: Initial ACUITY: 1 day PAIN SCALE: 0/10 LOCATION: Bilateral abdomen TECHNIQUE: Volumetric scanning of the abdomen was performed. Using automated exposure control and adjustment of the mA and/or kV according to patient size, radiation dose was kept as low as reasonably achievable to obtain optimal diagnostic quality images. FINDINGS: There is no intraabdominal free air. There is no evidence for a leak. Right and left kidneys unremarkable. Colon is interposed between liver and anterior abdominal wall. CONCLUSION: 1. There is no evidence for free air or leak. 2. Spinal stimulator is noted. Ike Flaherty MD FACR on October 14, 2016 at 10:43 Board Certified Radiologist. This report was verified electronically.
--- NOTE | 2016-10-14 11:03 | RADRPT ---
EXAM DATE/TIME: 10/14/2016 09:44 [facility] COMPARISON: CT THORAX W/O CONTRAST, October 07, 2016, 3:08. INDICATIONS : Post Gastrograffin swallow, evauate for leak. RADIATION DOSE: 6.85 CTDIvol (mGy) MEDICAL HISTORY : Not obtainable SURGICAL HISTORY : Not obtainable ENCOUNTER: Initial ACUITY: 1 day PAIN SCALE: 1/10 LOCATION: Chest TECHNIQUE: Volumetric scanning of the chest was performed. Using automated exposure control and adjustment of t he mA and/or kV according to patient size, radiation dose was kept as low as reasonably achievable to obtain optimal diagnostic quality images. FINDINGS: There are small bilateral pleural effusions. There is no evidence for extravasation or leak. Small pericardial effusion is evident. Minimal coronary artery calcifications are noted. There is a small amount of air anterior to the liver that has colon interposed between liver and abdo harsh wall. CONCLUSION: 1. There is no evidence extravasation or leak. 2. Small pericardial effusion. 3. Small bilateral pleural effusions with minimal bibasilar parenchymal changes. Ike Flaherty MD FACR on October 14, 2016 at 10:39 Board Certified Radiologist. This report was verified electronically.
--- NOTE | 2016-10-14 12:26 | HHI.IDPN ---
Subjective Subjective Remarks 56-year-old female transferred from [place], for further management of esophageal perforation. He was initially admitted for food impaction, underwent EGD, and removal of foreign body, and there was an unintentional perforation in the distal esophagus. She was transferred to [facility]. Patient has stabilized, and infectious disease consultation was requested to evaluate for a blood culture with strep viridans. Notes reviewed She remains on nothing by mouth, but her NG tube got accidentally pulled out yesterday Had very him swallow today and it did not show any obstruction CT of the abdomen as well as the chest did not show any findings of leak GI evaluating the patient for need for possible EGD She remains on nothing by mouth She is afebrile Only one positive blood culture with strep viridans on admission Repeat blood cultures have been negative WBC normal Antibiotics Unasyn Past Medical History Chronic pain Hypothyroidism COPD Hypertension Hyperlipidemia GERD Depression Past Surgical History Bilateral tubal ligation Correction of deviated septum History of tubal Pilonidal cyst Cervical fusion Breast lumpectomy Laminectomy Allergies: Coded Allergies: No Known Allergies (Unverified , 10/07/16) Objective . Vital Signs Date Time Temp Pulse Resp B/P Pulse Ox O2 Delivery O2 Flow Rate FiO2 10/14/16 08:00 99.0 62 16 134/90 93 10/14/16 03:30 99.0 66 16 148/83 91 10/14/16 00:35 98.5 79 17 150/93 93 10/13/16 20:15 99.2 57 17 142/88 96 10/13/16 16:00 98.7 65 18 135/68 94 10/13/16 10/13/16 10/14/16 15:00 23:00 07:00 Intake Total 467 ml 1120 ml Output Total 775 ml 350 ml 600 ml Balance -775 ml 117 ml 520 ml Intake Oral 0 ml 0 ml IV Total 467 ml 1120 ml Output Urine Total 775 ml 350 ml 600 ml # Bowel Movements 0 0 1 . Laboratory Tests Test 10/13/16 05:50 White Blood Count 9.0 TH/MM3 Red Blood Count 3.64 MIL/MM3 Hemoglobin 10.6 GM/DL Hematocrit 33.5 % Mean Corpuscular Volume 92.1 FL Mean Corpuscular Hemoglobin 29.2 PG Mean Corpuscular Hemoglobin 31.7 % Concent Red Cell Distribution Width 18.5 % Platelet Count 271 TH/MM3 Mean Platelet Volume 7.9 FL Neutrophils (%) (Auto) 78.0 % Lymphocytes (%) (Auto) 12.4 % Monocytes (%) (Auto) 6.6 % Eosinophils (%) (Auto) 2.6 % Basophils (%) (Auto) 0.4 % Neutrophils # (Auto) 7.0 TH/MM3 Lymphocytes # (Auto) 1.1 TH/MM3 Monocytes # (Auto) 0.6 TH/MM3 Eosinophils # (Auto) 0.2 TH/MM3 Basophils # (Auto) 0.0 TH/MM3 CBC Comment DIFF FINAL Differential Comment Laboratory Tests Test 10/13/16 10/14/16 05:50 05:10 Sodium Level 142 MEQ/L 139 MEQ/L Potassium Level 3.4 MEQ/L 3.2 MEQ/L Chloride Level 107 MEQ/L 101 MEQ/L Carbon Dioxide Level 24.2 MEQ/L 30.1 MEQ/L Anion Gap 11 MEQ/L 8 MEQ/L Blood Urea Nitrogen 8 MG/DL 4 MG/DL Creatinine 0.39 MG/DL 0.47 MG/DL Estimat Glomerular Filtration 171 ML/MIN 138 ML/MIN Rate Random Glucose 44 MG/DL 129 MG/DL Calcium Level 8.0 MG/DL 7.8 MG/DL Imaging Upper GI/Barium Swallow X-Ray 10/14/16 0600 Signed Impressions: Service Date/Time: Friday, October 14, 2016 09:36 - CONCLUSION: No obstruction. CT scan is pending. Ike Flaherty MD FACR Chest X-Ray 10/08/16 0000 Signed Impressions: Service Date/Time: Saturday, October 08, 2016 12:23 - CONCLUSION: 1. The NG tube appears to be in the upper to mid thoracic esophagus 2. Otherwise, no significant changes. Jenaro Leblanc MD Chest CT 10/07/16 0000 Signed Impressions: Service Date/Time: Friday, October 07, 2016 03:08 - CONCLUSION: Significant extraluminal gas in the lower mediastinum and visualized upper abdomen. Perihilar and bibasilar parenchymal infiltrates. Sabas Enciso MD Physical Exam GENERAL: awake and alert, not in respiratory distress. Ambulating in her room SKIN: Warm and dry. No generalized rash, no ecchymoses and no evidence of embolic lesions. HEAD: Atraumatic. Normocephalic. No temporal wasting, or tenderness. EYES: [place] conjunctiva. No petechia or hemorrhage. No scleral icterus. No injection or drainage. EARS, NOSE AND THROAT: Nose without bleeding or purulent nasal discharge. No sinus tenderness. Mucous membranes pink and moist. No oral lesions noted. No exudate. NECK: Trachea midline. Supple and not tender, no meningeal signs CARDIOVASCULAR: Regular rate and rhythm. No murmurs, rubs or gallops heard RESPIRATORY: Clear to auscultation. Breath sounds equal bilaterally. No rales , wheezing or rhonchi. Decreased at bases. ABDOMEN: Soft, non-tender, mildly distended. Bowel sounds present and normoactive. No guarding. No rebound. No organomegaly. EXTREMITIES: No clubbing, cyanosis, or edema. No joint effusion, has good ROM. No calf tenderness. Well perfused and warm. NEUROLOGICAL: Awake and alert. Cranial nerves grossly intact. Motor grossly within normal limits. PSYCHIATRIC: Normal affect, calm and cooperative. LINE: No evidence of infection Assessment & Plan Remarks IMPRESSION Distal esophagus perforation during EGD for removal of FB, likely sealed off (? ) Complete obstruction distal esophagus on swallowing study with no evidence of leak One (+) BC with Strep viridans, ?real, ?possibly transient from perforation - repeat BC negative Known COPD RECOMMENDATION Continue IV Unasyn for Strep bacteremia in setting of esophageal perforation - likely transient - repeat BC negative GI evaluating patient for repeat EGD Follow C/S Monitor progress Once GI evaluation done, and can start PO, then I will transition to oral Abx Mary Petty MD Oct 14, 2016 12:26
--- NOTE | 2016-10-14 15:04 | HHI.GIFU ---
Subjective Remarks asymptomatic today Objective Vitals I&O Vital Signs Date Time Temp Pulse Resp B/P Pulse Ox O2 Delivery O2 Flow Rate FiO2 10/14/16 12:00 96.3 60 16 135/86 95 10/14/16 08:00 99.0 62 16 134/90 93 10/14/16 03:30 99.0 66 16 148/83 91 10/14/16 00:35 98.5 79 17 150/93 93 10/13/16 20:15 99.2 57 17 142/88 96 10/13/16 16:00 98.7 65 18 135/68 94 I/O 10/13/16 10/13/16 10/13/16 10/14/16 10/14/16 10/14/16 07:00 15:00 23:00 07:00 15:00 23:00 Intake Total 0 ml 467 ml 1120 ml Output Total 650 ml 775 ml 350 ml 600 ml Balance -650 ml -775 ml 117 ml 520 ml Intake Oral 0 ml 0 ml 0 ml IV Total 467 ml 1120 ml Output Urine Total 650 ml 775 ml 350 ml 600 ml # Bowel Movements 0 0 0 1 Laboratory Laboratory Tests Test 10/14/16 05:10 Sodium Level 139 Potassium Level 3.2 Chloride Level 101 Carbon Dioxide Level 30.1 Anion Gap 8 Blood Urea Nitrogen 4 Creatinine 0.47 Estimat Glomerular Filtration 138 Rate Random Glucose 129 Calcium Level 7.8 Date/Time Procedure Status Source Growth 10/11/16 12:16 Aerobic Blood Culture - Preliminary Resulted Blood Peripheral NO GROWTH IN 3 DAYS 10/11/16 12:16 Anaerobic Blood Culture - Preliminary Resulted Blood Peripheral NO GROWTH IN 3 DAYS Physical Exam HEENT: NG tube in place CHEST: Chest is clear to auscultation and percussion. CARDIAC: Regular rate and rhythm with no murmur gallop or rubs. ABDOMEN: Soft, nondistended, nontender; no hepatosplenomegaly; bowel sounds are present in all four quadrants. EXTREMITIES: No clubbing, cyanosis, or edema. Neurology: Alert and oriented Assessment and Plan Plan ASSESSMENT - Esophageal perforation , sealed and no leak at the current time - Foreign body esophagus, normal GGS (passed and no blockage) PLAN - EGD as outpatient after 6-8 weeks - Liquid diet and advance as tolerated to soft - Stable from GI point of view. Neelima Granados MD Oct 14, 2016 15:04
[2016-10-14] MEDS: CHLORHEXIDINE 0.12% (ORAL KIT) 15 ML CUP MT SCH (20:00)
[2016-10-15] MEDS ORDERED: TIZA4TAB PO (00:12)
[2016-10-15] MEDS ORDERED: LEVO.1 PO (00:12)
[2016-10-15] MEDS ORDERED: LEVO.075 PO (00:12)
[2016-10-15] MEDS ORDERED: PERC7.5T13 PO (00:12)
[2016-10-15] MEDS ORDERED: AMIT75TA2 PO (00:12)
[2016-10-15] MEDS ORDERED: MORPHINE SULFATE 4 MG/ML INJ IV PUSH PRN (00:30)
[2016-10-15] MEDS: DEXT 5%-NACL 0.45% 1000 ML INJ 1,000 ML IV SCH (02:00)
[2016-10-15 04:00] VITALS: BP 117/73; PULSE 63; RESP 18; TEMP 98.4; O2SAT 94
[2016-10-15] MEDS: CHLORHEXIDINE GLUCONATE 2 % 1 PACK (2 CLOTHS) TOP SCH (04:00)
[2016-10-15] MEDS: AMPICILLIN-SULBACTAM INJ 3 GM in SODIUM CHLORIDE 0.9% INJ 100 ML IV SCH ×2 (04:02→09:13)
[2016-10-15] MEDS: PANTOPRAZOLE SODIUM 40 MG VIAL IV SCH (07:57)
[2016-10-15 08:00] VITALS: BP 140/93; PULSE 59; RESP 20; TEMP 96.8; O2SAT 95
[2016-10-15] MEDS: CHLORHEXIDINE 0.12% (ORAL KIT) 15 ML CUP MT SCH (08:00)
[2016-10-15] MEDS: SODIUM CHLORIDE 0.9% FLUSH 10 ML FLUSH SCH (09:00)
--- NOTE | 2016-10-15 11:10 | HHI.PR ---
Subjective Remarks Follow-up microperforation of the esophagus/foreign body in esophagus 10/12/16-patient seen and examined by me currently nothing by mouth and denies any throat pain. Vitals stable. 10/13/16-patient seen and examined, she has symptomatic episode of hypoglycemia. No other issues 10/14/16-patient seen and examined, she accidentally pulled out NG tube last night. Currently nothing by mouth pending Gastrografin study today. Denies any abdominal pain. 10/15/16-patient seen and examined, she had a normal Gastrografin test yesterday without any evidence of leak. Patient not tolerate clear liquids without any conduction nausea and vomiting. Objective Vitals Vital Signs Date Time Temp Pulse Resp B/P Pulse Ox O2 Delivery O2 Flow Rate FiO2 10/15/16 08:00 96.8 59 20 140/93 95 10/15/16 04:00 98.4 63 18 117/73 94 10/14/16 20:27 98.7 70 17 125/78 95 10/14/16 17:55 95 21 10/14/16 16:00 97.4 64 15 140/96 94 10/14/16 12:00 96.3 60 16 135/86 95 I/O 10/14/16 10/14/16 10/14/16 10/15/16 10/15/16 10/15/16 07:00 15:00 23:00 07:00 15:00 23:00 Intake Total 1120 ml 720 ml 480 ml 480 ml Output Total 600 ml 1000 ml Balance 520 ml -280 ml 480 ml 480 ml Intake Oral 0 ml 720 ml 480 ml 480 ml IV Total 1120 ml Output Urine Total 600 ml 1000 ml # Voids 3 2 3 # Bowel Movements 1 2 0 0 Result Diagram: 10/13/16 0550 10/14/16 0510 Imaging Last Impressions Chest CT 10/14/16 0942 Signed Impressions: Service Date/Time: Friday, October 14, 2016 09:44 - CONCLUSION: 1. There is no evidence extravasation or leak. 2. Small pericardial effusion. 3. Small bilateral pleural effusions with minimal bibasilar parenchymal changes. Ike Flaherty MD FACR Upper GI/Barium Swallow X-Ray 10/14/16 0600 Signed Impressions: Service Date/Time: Friday, October 14, 2016 09:36 - CONCLUSION: No obstruction. CT scan is pending. Ike Flaherty MD FACR Abdomen CT 10/14/16 0000 Signed Impressions: Service Date/Time: Friday, October 14, 2016 10:27 - CONCLUSION: 1. There is no evidence for free air or leak. 2. Spinal stimulator is noted. Ike Flaherty MD FACR Chest X-Ray 10/08/16 0000 Signed Impressions: Service Date/Time: Saturday, October 08, 2016 12:23 - CONCLUSION: 1. The NG tube appears to be in the upper to mid thoracic esophagus 2. Otherwise, no significant changes. Jenaro Leblanc MD Objective Remarks GENERAL: NAD SKIN: Warm and dry. HEAD: Normocephalic. EYES: No scleral icterus. No injection or drainage. NECK: Supple, trachea midline. No JVD or lymphadenopathy. CARDIOVASCULAR: Regular rate and rhythm without murmurs, gallops, or rubs. RESPIRATORY: Breath sounds equal bilaterally. No accessory muscle use. GASTROINTESTINAL: Abdomen soft, non-tender, nondistended. MUSCULOSKELETAL: No cyanosis, or edema. BACK: Nontender without obvious deformity. No CVA tenderness. Procedures none A/P Problem List: (1) COPD (chronic obstructive pulmonary disease) ICD Code: J44.9 Status: Chronic (2) Acute respiratory failure ICD Code: J96.00 Status: Acute (3) Tobacco abuse ICD Code: Z72.0 Status: Chronic (4) Chronic pain ICD Code: G89.29 Status: Chronic (5) Hypothyroid ICD Code: E03.9 Status: Chronic (6) Esophageal foreign body ICD Code: T18.108A Status: Acute (7) Accidental esophageal perforation during procedure ICD Code: K91.72 Status: Acute (8) Esophagitis ICD Code: K20.9 Status: Chronic (9) Depression ICD Code: F32.9 Status: Chronic (10) GERD (gastroesophageal reflux disease) ICD Code: K21.9 Status: Chronic (11) Hyperlipidemia ICD Code: E78.5 Status: Chronic (12) HTN (hypertension) ICD Code: I10 Status: Chronic (13) Hypoglycemia, unspecified ICD Code: E16.2 Status: Acute Assessment and Plan 56-year-old female with GERD Esophagitis Esophageal foreign body, meat impaction Concern for esophageal perforation, distal 1/3 of esophagus Endoscopy performed at [facility]. Dr. Nazario states unable to fully remove foreign body despite multiple attempts and concern that there was an unintentional perforation of the esophagus. Contrast swallow with no leak but complete distal esophageal obstruction. Appreciate input from gastroenterology Gastrografin swallow as well as chest CT without any evidence of leak 10/14/16 Advance diet as tolerated Chronic pain Pain pump in place Depression Continue to Hold amitriptyline 75 mg by mouth daily until patient is able to tolerate by mouth Acute respiratory failure-resolved COPD Tobacco abuse Chest x-raysatisfactory endotracheal tube position, bibasilar opacities, no subcutaneous edema. DuoNeb every 6 hours. Albuterol every 2 hours as needed. Hypertension Hyperlipidemia Hold home Norvasc 5 mg by mouth daily until patient is able to tolerate by mouth Hold atorvastatin 40 mg by mouth daily at bedtime until patient is able to tolerate by mouth Strep viridans bacteremia Currently on Unasyn per infectious disease specialist and monitor cultures. Awaiting for final recommendation from ID regarding by mouth antibiotics prior to discharge Hypothyroidism Home Synthroid dose is 175 g daily. Restart home Synthroid 175 g daily on 11/25 Hypoglycemia Resolved and discontinue D5 half-normal and continue treatment for hypoglycemia protocol PROPH: SCDs for DVT prophylaxis. Protonix 40 mg IV daily for stress ulcer prophylaxis and history of GERD. Problem Qualifiers (1) Esophageal foreign body: Qualified Code: T18.108D - Esophageal foreign body, subsequent encounter Luis Velazquez MD Oct 15, 2016 11:10
--- NOTE | 2016-10-15 11:21 | HHI.DS ---
Discharge Summary Admission Date October 07, 2016 at 00:31 Discharge Date: Oct 15, 2016 Admitting Diagnosis (1) Esophageal foreign body ICD Code: T18.108A (2) COPD (chronic obstructive pulmonary disease) ICD Code: J44.9 (3) Acute respiratory failure ICD Code: J96.00 (4) Tobacco abuse ICD Code: Z72.0 (5) Chronic pain ICD Code: G89.29 (6) Hypothyroid ICD Code: E03.9 (7) Accidental esophageal perforation during procedure ICD Code: K91.72 (8) Esophagitis ICD Code: K20.9 (9) Depression ICD Code: F32.9 (10) GERD (gastroesophageal reflux disease) ICD Code: K21.9 (11) Hyperlipidemia ICD Code: E78.5 (12) HTN (hypertension) ICD Code: I10 (13) Hypoglycemia, unspecified ICD Code: E16.2 Procedures none Brief History - From Admission 86-year-old female with past history of COPD, GERD, hypertension, hyperlipidemia, hypothyroidism, chronic pain with pain pump L flank transferred from [facility] due to concern for esophageal perforation. Patient originally presented to [facility] emergency Department on at around 8 PM complaining of difficulty swallowing after she had eaten some steak around [address] Nazario with gastroenterology took her to GI lab for endoscopy where she was noted to have significant esophagitis. There was a large foreign body with steak in the esophagus. He made multiple passes with net and tripod and was able to remove 6-7 large pieces of steak but states there was still a large amount of residual foreign body when procedure concluded after unintentional esophageal perforation distal third of esophagus. Dr. Nazario discussed with Dr. Hernandez with [facility] who agreed to see patient in consultation with hand profiler admission. Patient is awake alert, anxious on the ventilator upon arrival with propofol at 80 g per KG per minute. Normotensive. CBC/BMP: 10/13/16 0550 10/14/16 0510 Significant Findings Laboratory Tests Test 10/13/16 10/14/16 05:50 05:10 Red Blood Count 3.64 MIL/MM3 (4.00-5.30) Hemoglobin 10.6 GM/DL (11.6-15.3) Hematocrit 33.5 % (35.0-46.0) Mean Corpuscular Hemoglobin 31.7 % Concent (32.0-36.0) Red Cell Distribution Width 18.5 % (11.6-17.2) Neutrophils (%) (Auto) 78.0 % (16.0-70.0) Potassium Level 3.4 MEQ/L 3.2 MEQ/L (3.5-5.1) (3.5-5.1) Creatinine 0.39 MG/DL 0.47 MG/DL (0.50-1.00) (0.50-1.00) Random Glucose 44 MG/DL 129 MG/DL (74-106) (74-106) Calcium Level 8.0 MG/DL 7.8 MG/DL (8.5-10.1) (8.5-10.1) Blood Urea Nitrogen 4 MG/DL (7-18) PE at Discharge GENERAL: NAD SKIN: Warm and dry. HEAD: Normocephalic. EYES: No scleral icterus. No injection or drainage. NECK: Supple, trachea midline. No JVD or lymphadenopathy. CARDIOVASCULAR: Regular rate and rhythm without murmurs, gallops, or rubs. RESPIRATORY: Breath sounds equal bilaterally. No accessory muscle use. GASTROINTESTINAL: Abdomen soft, non-tender, nondistended. MUSCULOSKELETAL: No cyanosis, or edema. BACK: Nontender without obvious deformity. No CVA tenderness. Transfer Summary Transferred from [place] with impacted meat in distal esophagus. Intubated at OSH. Outside GI Doc could not remove impacted meat but caused microperforation so she was shipped to [place]. Extubated 2 days ago and doing well. Gastrograffin swallow reveals complete obstruction of distal esophagus but no leak. One blood culture positive for Strep viridans; on Unasyn by ID service. GI trying to decide when to scope her. The NG tube is in her mid-esophagus to catch oral secretions. Hospital Course Patient admitted secondary to concern for esophageal perforation for which gastroenterology as well as general surgery were consulted. Patient was initially kept nothing by mouth, IV fluid hydration. Subsequently underwent Gastrografin swallow chest CT which did not reveal any evidence of leak and patient was started on the full liquid diet. Her hospital course was complicated by strep. Viridian bacteremia for which infectious disease specialist was consulted and she was started on IV antibiotic. She was also treated for episode of hypoglycemia per protocol with improvement of blood glucose. DVT and GI prophylaxis were provided. Prior to discharge, patient's condition improved and vital remained stable.Will recommend EGD in 6-8 weeks Pt Condition on Discharge: Stable Discharge Disposition: Discharge Home Discharge Time: > 30 minutes Discharge Instructions DIET: Follow Instructions for: Heart Healthy Diet Activities you can perform: Regular-No Restrictions Follow up Referrals: Gastroenterology PCP Follow-up - 1 Week Continued Medications: Amitriptyline (Amitriptyline) 75 Mg Tab 75 MG PO HS sleep TAB Levothyroxine (Synthroid) 75 Mcg Tab 75 MCG PO DAILY Thyroid #30 Ref 0 TAB Levothyroxine (Synthroid) 100 Mcg Tab 100 MCG PO DAILY Thyroid #30 Ref 0 TAB Tizanidine (Tizanidine) 4 Mg Tab 4 MG PO HS Ref 0 TAB Discontinued Medications: Oxycodone-Acetaminophen (Percocet) 7.5-325 mg Tab 1 TAB PO BID PRN PAIN Ref 0 TAB Luis Velazquez MD Oct 15, 2016 11:21
[2016-10-15 12:00] VITALS: BP 127/83; PULSE 63; RESP 20; TEMP 98.3; O2SAT 93
--- NOTE | 2016-10-15 12:01 | HHI.IDPN ---
Note Infectious Disease Note GI notes reviewed No need for EGD now, plan to be done as outpatient There are no new (+) BC I will change her to Augmentin suspension - if no problem swallowing with first dose, ok to go home today on Augmentin susp 500 TID x 10 days Relayed recommendations to Mary Garrido MD Oct 15, 2016 12:01
[2016-10-15] MEDS ORDERED: LACTCHW3 CHEW (12:03)
[2016-10-15] MEDS ORDERED: AUGM500T7 PO (12:03)
[2016-10-15] MEDS ORDERED: AMOXICILLIN/CLAVUL SUSP 250 MG/5 ML 100 ML BTL PO SCH (14:00)
== END 2016-10-15 18:08 | disposition home or self-care (01) | DRG 919 ==
LOC: N03A 10-07 00:31 → N06A 10-12 17:23
PROVIDERS: ADMIT Hospitalist; ATTEND Hospitalist
PROC: 02HV33Z Insertion of Infusion Device into Superior Vena Cava, Percutaneous Approach (ICD-10-PCS; principal; 2016-10-07)
PROC: 5A1945Z Respiratory Ventilation, 24-96 Consecutive Hours (ICD-10-PCS; 2016-10-07)
DX: K91.71 Accidental puncture and laceration of a digestive system organ or structure during a digestive system procedure (principal); J96.00 Acute respiratory failure, unspecified whether with hypoxia or hypercapnia; J44.9 Chronic obstructive pulmonary disease, unspecified; R78.81 Bacteremia; K22.2 Esophageal obstruction; F10.230 Alcohol dependence with withdrawal, uncomplicated; I10 Essential (primary) hypertension; F32.9 Major depressive disorder, single episode, unspecified; F17.210 Nicotine dependence, cigarettes, uncomplicated; G89.29 Other chronic pain; E03.9 Hypothyroidism, unspecified; E78.5 Hyperlipidemia, unspecified; K21.0 Gastro-esophageal reflux disease with esophagitis; E16.2 Hypoglycemia, unspecified; Z96.89 Presence of other specified functional implants
CPT/HCPCS: 36556; 36600; 71010; 71250; 74150; 74220; 80048; 80053; 82565; 82805; 82948; 84155; 84436; 84443; 85007; 85025; 85027; 87040; 87070; 87149; 87186; 87205; 87641; 94002; 94003; 94150; 94640; 94664; C9113; J0295; J1100; J1450; J2060; J2250; J2270; J2543; J3010; J3370; J3480; J7030; J7040; Q9963